=== PATIENT | male | born 1960 | race Caucasian/White ===

== ENCOUNTER 2020-05-23 14:51 | Inpatient (IN) | payer OTHER ==
[2020-05-23] MEDS ORDERED: Sodium Chloride 0.9% 10 ML Syringe FLUSH PRN (15:36)
[2020-05-23] MEDS ORDERED: Acetaminophen 325 MG Tab PO ONE (15:36)
--- NOTE | 2020-05-23 17:37 | EDM.PDOC ---
ED HPI GENERAL MEDICAL PROBLEM - General Chief Complaint: Respiratory Problem Stated Complaint: COVID + AND SOB Time Seen by Provider: 05/23/20 15:34 Source of Information: Reports: Patient, RN Notes Reviewed - History of Present Illness INITIAL COMMENTS - FREE TEXT/NARRATIVE: 60 yr old male exposed to a covid positive person about 2 wks ago, started feeling ill about 7 to 8 days ago. He has had cough, fever, chills, [place], myalgias and worsening dyspnea with exertion the past 2 days. Hx of Htn, Hx of CAD with 2 stents. He is not diabetic, he does not smoke. Treatments BONE GRINDER: Reports: Other (see below) Other Treatments BONE GRINDER: cold anfd flu prn Headache Pain Score (Numeric/FACES): 7 Generalized Pain Score (Numeric/FACES): 6 - Related Data Allergies Allergy/AdvReac Type Severity Reaction Status Date / Time No Known Allergies Allergy Verified 12/20/17 06:55 Home Meds: Home Meds Benazepril [Lotensin] 40 mg PO DAILY 05/23/20 [History] Metoprolol Tartrate [Lopressor] 25 mg PO BID 05/23/20 [History] Ubidecarenone [Co Q-10] 100 mg PO DAILY 05/23/20 [History] atorvaSTATin [Lipitor] 80 mg PO DAILY 05/23/20 [History] ED ROS GENERAL - Review of Systems Review Of Systems: See Below Constitutional: Reports: Fever, Chills HEENT: Denies: Throat Pain Respiratory: Reports: Shortness of Breath, Cough Cardiovascular: Denies: Chest Pain GI/Abdominal: Reports: Decreased Appetite. Denies: Abdominal Pain, Vomiting Musculoskeletal: Reports: Other (generalized myalgias). Denies: Shoulder Pain, Arm Pain Skin: Reports: No Symptoms Neurological: Reports: Dizziness, Headache, Weakness (generalized). Denies: Trouble Speaking ED EXAM, GENERAL - Physical Exam Exam: See Below General Appearance: Alert, No Apparent Distress (at time of exam on 4 L NC) Eye Exam: Bilateral Eye: PERRL Head: Atraumatic Neck: Supple Respiratory/Chest: Respiratory Distress (mild tachypnea). No: Rhonchi, Wheezing Cardiovascular: Regular Rate, Rhythm GI/Abdominal: Soft, Non-Tender Back Exam: No: CVA Tenderness (L), CVA Tenderness (R) Extremities: No: Pedal Edema, Leg Pain, Redness Neurological: Alert, Oriented, No Motor/Sensory Deficits Skin Exam: Warm, Dry, Normal Color Course - Vital Signs Last Recorded V/S: Last Vital Signs Temp 100.9 F H 05/23/20 15:26 Pulse 100 05/23/20 15:26 Resp BP 150/80 H 05/23/20 15:26 Pulse Ox 83 L 05/23/20 15:26 - Orders/Labs/Meds Orders: Active Orders 24 hr Category Date Time Status Oxygen Therapy [RC] ASDIRECTED Care 05/23/20 15:35 Active Peripheral IV Care [RC] . DIRECTED Care 05/23/20 15:36 Active Chest 1V Frontal [CR] Stat Exams 05/23/20 15:34 Taken CALCITRIOL(1,25 DI-OH VIT D) [REF] Routine Lab 05/23/20 18:22 Received PROCALCITONIN [REF] Routine Lab 05/23/20 18:22 Received Sodium Chloride 0.9% [Saline Flush] Med 05/23/20 15:36 Active 10 ml FLUSH ASDIRECTED PRN Peripheral IV Insertion Adult [OM.PC] Stat Oth 05/23/20 15:35 Ordered Medication Orders Acetaminophen (Tylenol) 650 mg PO Q4H PRN PRN Reason: Pain (Mild 1-3)/fever Albuterol/Ipratropium (Duoneb 3.0-0.5 Mg/3 Ml) 3 ml NEB Q4H PRN PRN Reason: Shortness Of Breath/wheezing Dexamethasone (Dexamethasone) 6 mg IV DAILY [facility] Docusate Sodium (Colace) 100 mg PO BID PRN PRN Reason: Constipation Enoxaparin Sodium (Lovenox) 40 mg SUBCUT DAILY [facility] Sodium Chloride (Normal Saline) 1,000 mls @ 75 mls/hr IV ASDIRECTED BREONNA Remdesivir 100 mg/ Sodium (Chloride) 100 mls @ 100 mls/hr IV Q24H [facility] Stop: 05/27/20 18:59 Ondansetron HCl (Zofran Odt) 4 mg PO Q6H PRN PRN Reason: nausea, able to take PO Oxycodone HCl (Oxycodone) 5 mg PO Q4H PRN PRN Reason: Pain (moderate 4-6) Sodium Chloride (Saline Flush) 10 ml FLUSH ASDIRECTED PRN PRN Reason: Keep Vein Open Last Admin: 05/23/20 16:04 Dose: 10 ml Documented by: LILO Temazepam (Restoril) 15 mg PO BEDTIME PRN PRN Reason: Sleep Labs: Laboratory Tests 05/23/20 05/23/20 05/23/20 Range/Units 16:00 16:00 16:00 WBC 5.68 (4.23-9.07) K/mm3 RBC 4.69 (4.63-6.08) M/mm3 Hgb 13.7 D (13.7-17.5) gm/dl Hct 41.0 (40.1-51.0) % MCV 87.4 (79.0-92.2) fl MCH 29.2 (25.7-32.2) pg MCHC 33.4 (32.2-35.5) g/dl RDW Std Deviation 46.5 H (35.1-43.9) fL Plt Count 286 (163-337) K/mm3 MPV 8.9 L (9.4-12.3) fl Neut % (Auto) 75.5 H (34.0-67.9) % Lymph % (Auto) 16.5 L (21.8-53.1) % [place] % (Auto) 7.4 (5.3-12.2) % Eos % (Auto) 0 L (0.8-7.0) Baso % (Auto) 0.4 (0.1-1.2) % Neut # (Auto) 4.29 (1.78-5.38) K/mm3 Lymph # (Auto) 0.94 L (1.32-3.57) K/mm3 [place] # (Auto) 0.42 (0.30-0.82) K/mm3 Eos # (Auto) 0.00 L (0.04-0.54) K/mm3 Baso # (Auto) 0.02 (0.01-0.08) K/mm3 Manual Slide Review Normal smear D-Dimer, Quantitative (0.19-0.50) mg/L Sodium 136 (136-145) mEq/L Potassium 4.0 (3.5-5.1) mEq/L Chloride 100 (98-107) mEq/L Carbon Dioxide 24 (21-32) mEq/L Anion Gap 16.0 H (5-15) BUN 14 (7-18) mg/dL Creatinine 1.1 (0.7-1.3) mg/dL Est Cr Clr Drug Dosing 75.58 mL/min Estimated GFR (MDRD) > 60 (>60) mL/min BUN/Creatinine Ratio 12.7 L (14-18) Glucose 143 H (74-106) mg/dL Calcium 8.1 L (8.5-10.1) mg/dL Ferritin (26-388) ng/ml Total Bilirubin 0.8 (0.2-1.0) mg/dL AST 28 (15-37) U/L ALT 39 (16-63) U/L Alkaline Phosphatase 83 (46-116) U/L Lactate Dehydrogenase 347 H (85-227) U/L Troponin I < 0.017 (0.00-0.056) ng/mL C-Reactive Protein 13.4 H* (<1.0) mg/dL Total Protein 7.1 (6.4-8.2) g/dl Albumin 2.8 L (3.4-5.0) g/dl Globulin 4.3 gm/dL Albumin/Globulin Ratio 0.7 L (1-2) 05/23/20 05/23/20 Range/Units 16:00 16:00 WBC (4.23-9.07) K/mm3 RBC (4.63-6.08) M/mm3 Hgb (13.7-17.5) gm/dl Hct (40.1-51.0) % MCV (79.0-92.2) fl MCH (25.7-32.2) pg MCHC (32.2-35.5) g/dl RDW Std Deviation (35.1-43.9) fL Plt Count (163-337) K/mm3 MPV (9.4-12.3) fl Neut % (Auto) (34.0-67.9) % Lymph % (Auto) (21.8-53.1) % [place] % (Auto) (5.3-12.2) % Eos % (Auto) (0.8-7.0) Baso % (Auto) (0.1-1.2) % Neut # (Auto) (1.78-5.38) K/mm3 Lymph # (Auto) (1.32-3.57) K/mm3 [place] # (Auto) (0.30-0.82) K/mm3 Eos # (Auto) (0.04-0.54) K/mm3 Baso # (Auto) (0.01-0.08) K/mm3 Manual Slide Review D-Dimer, Quantitative 0.77 H (0.19-0.50) mg/L Sodium (136-145) mEq/L Potassium (3.5-5.1) mEq/L Chloride (98-107) mEq/L Carbon Dioxide (21-32) mEq/L Anion Gap (5-15) BUN (7-18) mg/dL Creatinine (0.7-1.3) mg/dL Est Cr Clr Drug Dosing mL/min Estimated GFR (MDRD) (>60) mL/min BUN/Creatinine Ratio (14-18) Glucose (74-106) mg/dL Calcium (8.5-10.1) mg/dL Ferritin 1463 H (26-388) ng/ml Total Bilirubin (0.2-1.0) mg/dL AST (15-37) U/L ALT (16-63) U/L Alkaline Phosphatase (46-116) U/L Lactate Dehydrogenase (85-227) U/L Troponin I (0.00-0.056) ng/mL C-Reactive Protein (<1.0) mg/dL Total Protein (6.4-8.2) g/dl Albumin (3.4-5.0) g/dl Globulin gm/dL Albumin/Globulin Ratio (1-2) Meds: Medications Generic Name Dose Route Start Last Admin Trade Name Freq PRN Reason Stop Dose Admin Acetaminophen 650 mg 05/23/20 18:04 Tylenol PO Q4H PRN Pain (Mild 1-3)/fever Albuterol/Ipratropium 3 ml 05/23/20 18:04 Duoneb 3.0-0.5 Mg/3 Ml NEB Q4H PRN Shortness Of Breath/wheezing Dexamethasone 6 mg 05/23/20 18:15 Dexamethasone IV DAILY BREONNA Docusate Sodium 100 mg 05/23/20 18:04 Colace PO BID PRN Constipation Enoxaparin Sodium 40 mg 05/23/20 18:15 Lovenox SUBCUT DAILY [facility] Sodium Chloride 1,000 mls @ 75 mls/hr 05/23/20 18:15 Normal Saline IV ASDIRECTED BREONNA Remdesivir 100 mg/ Sodium 100 mls @ 100 mls/hr 05/24/20 18:00 Chloride IV 05/27/20 18:59 Q24H BREONNA Ondansetron HCl 4 mg 05/23/20 18:04 Zofran Odt PO Q6H PRN nausea, able to take PO Oxycodone HCl 5 mg 05/23/20 18:04 Oxycodone PO Q4H PRN Pain (moderate 4-6) Sodium Chloride 10 ml 05/23/20 15:36 05/23/20 16:04 Saline Flush FLUSH 10 ml ASDIRECTED PRN Administration Keep Vein Open Temazepam 15 mg 05/23/20 18:04 Restoril PO BEDTIME PRN Sleep Discontinued Medications Generic Name Dose Route Start Last Admin Trade Name Freq PRN Reason Stop Dose Admin Acetaminophen 975 mg 05/23/20 15:36 05/23/20 15:50 Tylenol PO 05/23/20 15:37 975 mg NOW ONE Administration Remdesivir 200 mg/ Sodium 250 mls @ 250 mls/hr 05/23/20 18:04 Chloride IV 05/23/20 18:05 ONETIME ONE Ibuprofen 800 mg 05/23/20 17:54 05/23/20 17:55 Motrin PO 05/23/20 17:55 800 mg ONETIME ONE Administration - Re-Assessments/Exams Free Text/Narrative Re-Assessment/Exam: 05/23/20 17:37. CXR shows mild infiltrate L lat lower lung. He is known covid positive. He just got results of his covid screen yesterday. sats 83 % on arrival to ED room air. sats have been running around 92 with O2 at [address] L NC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 Departure - Departure Time of Disposition: 17:41 Disposition: Admitted As Inpatient 68 Condition: Serious Clinical Impression: Pneumonia due to COVID-19 virus, Hypoxia - Discharge Information Sepsis Event Note (ED) - Evaluation Sepsis Screening Result: No Definite Risk - Focused Exam Vital Signs: Vital Signs Temp Pulse BP Pulse Ox Pulse Ox 05/23/20 15:26 100.9 F H 100 150/80 H 83 L 05/23/20 15:20 92 L - My Orders Last 24 Hours: My Active Orders 05/23/20 15:34 Chest 1V Frontal [CR] Stat 05/23/20 15:35 Oxygen Therapy [RC] ASDIRECTED Peripheral IV Insertion Adult [OM.PC] Stat 05/23/20 15:36 Peripheral IV Care [RC] . DIRECTED Sodium Chloride 0.9% [Saline Flush] 10 ml FLUSH ASDIRECTED PRN - Assessment/Plan Last 24 Hours: My Active Orders 05/23/20 15:34 Chest 1V Frontal [CR] Stat 05/23/20 15:35 Oxygen Therapy [RC] ASDIRECTED Peripheral IV Insertion Adult [OM.PC] Stat 05/23/20 15:36 Peripheral IV Care [RC] . DIRECTED Sodium Chloride 0.9% [Saline Flush] 10 ml FLUSH ASDIRECTED PRN
[2020-05-23] MEDS ORDERED: Ibuprofen 800 MG Tab PO ONE (17:54)
[2020-05-23] MEDS ORDERED: Temazepam 15 MG Cap PO PRN (18:04)
[2020-05-23] MEDS ORDERED: oxyCODONE 5 MG Tab PO PRN (18:04)
[2020-05-23] MEDS ORDERED: Ondansetron 4 MG Tab.DIS PO PRN (18:04)
[2020-05-23] MEDS ORDERED: Docusate Sodium 100 MG Cap PO PRN (18:04)
[2020-05-23] MEDS ORDERED: Acetaminophen 325 MG Tab PO PRN (18:04)
[2020-05-23] MEDS ORDERED: Dexamethasone 4 MG/ML 5 ML MDV IV SCH (18:15)
[2020-05-23] MEDS ORDERED: Enoxaparin 40 MG/0.4 ML Syringe SUBCUT SCH (18:15)
--- NOTE | 2020-05-23 18:20 | PCM.HP.2 ---
H&P History of Present Illness - General Date of Service: 05/23/20 Admit Problem/Dx: Admission Diagnosis/Problem Admission Diagnosis/Problem Hypoxia Source of Information: Patient History Limitations: Reports: No Limitations - History of Present Illness Initial Comments - Free Text/Narative: The patient is a 60-year-old gentleman who had presented to the emergency department after feeling ill for about 7 days. The patient had been exposed to a COVID-19 positive person. The patient's main concern is that he had been running a fever as high as 103. Patient also reports that he has had loss of taste and smell. Headache along with severe myalgias and worsening dyspnea. The patient does have a history of coronary artery disease and hypertension. Patient has been compliant with his medications. He does not smoke. The patient was positive for COVID-19 in the emergency department. The patient has had no specific aggravating or relieving factors however, he says the Tylenol has helped his fever. Patient has been in his usual state of health up until the present time. Onset of Symptoms: Reports: Gradual Duration of Symptoms: Reports: Day(s):, Getting Worse Improves with: Reports: Other (Oxygen) Worsens with: Reports: Breathing Context: Reports: Sick Contact Associated Symptoms: Reports: Cough, Diaphoresis, Fever/Chills, Headaches, Loss of Appetite, Other (Loss of taste, smell) Headache Pain Score (Numeric/FACES): 7 Generalized Pain Score (Numeric/FACES): 6 - Related Data Allergies/Adverse Reactions: Allergies Allergy/AdvReac Type Severity Reaction Status Date / Time No Known Allergies Allergy Verified 05/24/20 00:59 Home Medications: Home Meds Benazepril [Lotensin] 20 mg PO DAILY 05/23/20 [History] Metoprolol Tartrate [Lopressor] 25 mg PO BID 05/23/20 [History] Ubidecarenone [Co Q-10] 100 mg PO DAILY 05/23/20 [History] atorvaSTATin [Lipitor] 80 mg PO DAILY 05/23/20 [History] Past Medical History HEENT History: Reports: None Cardiovascular History: Reports: CAD, Heart Failure, Hypertension Respiratory History: Reports: None Gastrointestinal History: Reports: None Genitourinary History: Reports: None Musculoskeletal History: Reports: None Neurological History: Reports: None Endocrine/Metabolic History: Reports: None Hematologic History: Reports: None Immunologic History: Reports: None Dermatologic History: Reports: None - Infectious Disease History Infectious Disease History: Reports: Novel Coronavirus - Past Surgical History Cardiovascular Surgical History: Reports: Other (See Below) Other Cardiovascular Surgeries/Procedures: stent placement Musculoskeletal Surgical History: Reports: Shoulder Surgery Social & Family History - Tobacco Use Tobacco Use Status *Q: Former Tobacco User Used Tobacco, but Quit: Yes Month/Year Tobacco Last Used: years ago - Caffeine Use Caffeine Use: Reports: Coffee - Recreational Drug Use Recreational Drug Use: No - Living Situation & Occupation Living situation: Reports: , with Spouse H&P Review of Systems - Review of Systems: Review Of Systems: See Below General: Reports: Fever, Chills, Malaise, Weakness, Diaphoresis, Decreased Appetite HEENT: Reports: No Symptoms Pulmonary: Reports: Shortness of Breath, Cough Cardiovascular: Reports: Dyspnea on Exertion Gastrointestinal: Reports: Decreased Appetite Genitourinary: Reports: No Symptoms Musculoskeletal: Reports: Muscle Pain Skin: Reports: Diaphoresis Psychiatric: Reports: No Symptoms Neurological: Reports: Dizziness, Headache Hematologic/Lymphatic: Reports: No Symptoms Immunologic: Reports: No Symptoms Exam - Exam Exam: See Below - Vital Signs Vital Signs: Last Vital Signs Temp 38.3 C H 05/23/20 15:26 Pulse 100 05/23/20 15:26 Resp BP 150/80 H 05/23/20 15:26 Pulse Ox 83 L 05/23/20 15:26 Weight: 112.037 kg - Exam Quality Assessment: Supplemental Oxygen General: Alert, Oriented, Cooperative, Mild Distress HEENT: EACs Clear. No: Conjunctiva Clear (Inflamed), Mucosa Moist & [place] (Dry) Neck: Supple, Trachea Midline Lungs: Normal Respiratory Effort, Crackles (Widely scattered) Cardiovascular: Regular Rate, Regular Rhythm GI/Abdominal Exam: Normal Bowel Sounds, Soft, Non-Tender, No Distention (Male) Exam: Deferred Rectal (Males) Exam: Deferred Back Exam: Normal Inspection, Full Range of Motion Extremities: Normal Inspection, No Pedal Edema Skin: Warm, Intact, Moist Neurological: Cranial Nerves Intact Neuro Extensive - Mental Status: Alert, Oriented x3 Neuro Extensive - Motor, Sensory, Reflexes: CN II-XII Intact Psychiatric: Alert, Normal Affect, Normal Mood - Patient Data Lab Results Last 24 hrs: Laboratory Results - last 24 hr 05/23/20 05/23/20 05/23/20 Range/Units 16:00 16:00 16:00 WBC 5.68 (4.23-9.07) K/mm3 RBC 4.69 (4.63-6.08) M/mm3 Hgb 13.7 D (13.7-17.5) gm/dl Hct 41.0 (40.1-51.0) % MCV 87.4 (79.0-92.2) fl MCH 29.2 (25.7-32.2) pg MCHC 33.4 (32.2-35.5) g/dl RDW Std Deviation 46.5 H (35.1-43.9) fL Plt Count 286 (163-337) K/mm3 MPV 8.9 L (9.4-12.3) fl Neut % (Auto) 75.5 H (34.0-67.9) % Lymph % (Auto) 16.5 L (21.8-53.1) % [place] % (Auto) 7.4 (5.3-12.2) % Eos % (Auto) 0 L (0.8-7.0) Baso % (Auto) 0.4 (0.1-1.2) % Neut # (Auto) 4.29 (1.78-5.38) K/mm3 Lymph # (Auto) 0.94 L (1.32-3.57) K/mm3 [place] # (Auto) 0.42 (0.30-0.82) K/mm3 Eos # (Auto) 0.00 L (0.04-0.54) K/mm3 Baso # (Auto) 0.02 (0.01-0.08) K/mm3 Manual Slide Review Normal smear D-Dimer, Quantitative (0.19-0.50) mg/L Sodium 136 (136-145) mEq/L Potassium 4.0 (3.5-5.1) mEq/L Chloride 100 (98-107) mEq/L Carbon Dioxide 24 (21-32) mEq/L Anion Gap 16.0 H (5-15) BUN 14 (7-18) mg/dL Creatinine 1.1 (0.7-1.3) mg/dL Est Cr Clr Drug Dosing 75.58 mL/min Estimated GFR (MDRD) > 60 (>60) mL/min BUN/Creatinine Ratio 12.7 L (14-18) Glucose 143 H (74-106) mg/dL Calcium 8.1 L (8.5-10.1) mg/dL Ferritin (26-388) ng/ml Total Bilirubin 0.8 (0.2-1.0) mg/dL AST 28 (15-37) U/L ALT 39 (16-63) U/L Alkaline Phosphatase 83 (46-116) U/L Lactate Dehydrogenase 347 H (85-227) U/L Troponin I < 0.017 (0.00-0.056) ng/mL C-Reactive Protein 13.4 H* (<1.0) mg/dL Total Protein 7.1 (6.4-8.2) g/dl Albumin 2.8 L (3.4-5.0) g/dl Globulin 4.3 gm/dL Albumin/Globulin Ratio 0.7 L (1-2) 05/23/20 05/23/20 Range/Units 16:00 16:00 WBC (4.23-9.07) K/mm3 RBC (4.63-6.08) M/mm3 Hgb (13.7-17.5) gm/dl Hct (40.1-51.0) % MCV (79.0-92.2) fl MCH (25.7-32.2) pg MCHC (32.2-35.5) g/dl RDW Std Deviation (35.1-43.9) fL Plt Count (163-337) K/mm3 MPV (9.4-12.3) fl Neut % (Auto) (34.0-67.9) % Lymph % (Auto) (21.8-53.1) % [place] % (Auto) (5.3-12.2) % Eos % (Auto) (0.8-7.0) Baso % (Auto) (0.1-1.2) % Neut # (Auto) (1.78-5.38) K/mm3 Lymph # (Auto) (1.32-3.57) K/mm3 [place] # (Auto) (0.30-0.82) K/mm3 Eos # (Auto) (0.04-0.54) K/mm3 Baso # (Auto) (0.01-0.08) K/mm3 Manual Slide Review D-Dimer, Quantitative 0.77 H (0.19-0.50) mg/L Sodium (136-145) mEq/L Potassium (3.5-5.1) mEq/L Chloride (98-107) mEq/L Carbon Dioxide (21-32) mEq/L Anion Gap (5-15) BUN (7-18) mg/dL Creatinine (0.7-1.3) mg/dL Est Cr Clr Drug Dosing mL/min Estimated GFR (MDRD) (>60) mL/min BUN/Creatinine Ratio (14-18) Glucose (74-106) mg/dL Calcium (8.5-10.1) mg/dL Ferritin 1463 H (26-388) ng/ml Total Bilirubin (0.2-1.0) mg/dL AST (15-37) U/L ALT (16-63) U/L Alkaline Phosphatase (46-116) U/L Lactate Dehydrogenase (85-227) U/L Troponin I (0.00-0.056) ng/mL C-Reactive Protein (<1.0) mg/dL Total Protein (6.4-8.2) g/dl Albumin (3.4-5.0) g/dl Globulin gm/dL Albumin/Globulin Ratio (1-2) Result Diagrams: 05/24/20 04:29 05/23/20 16:00 Sepsis Event Note - Evaluation Sepsis Screening Result: No Definite Risk - Focused Exam Vital Signs: Vital Signs Temp Pulse BP Pulse Ox Pulse Ox 05/23/20 15:26 38.3 C H 100 150/80 H 83 L 05/23/20 15:20 92 L - Problem List (1) Acute respiratory failure due to COVID-19 SNOMED Code(s): 115258573 ICD Code: U07.1 - COVID-19; J96.00 - ACUTE RESPIRATORY FAILURE, UNSP W HYPOXIA OR HYPERCAPNIA Status: Acute Priority: High Current Visit: Yes (2) Pneumonia due to COVID-19 virus SNOMED Code(s): 329648726674164854 ICD Code: U07.1 - COVID-19; J12.89 - OTHER VIRAL PNEUMONIA Status: Acute Priority: High Current Visit: Yes (3) Hypoxia SNOMED Code(s): 134279245 ICD Code: R09.02 - HYPOXEMIA Status: Acute Priority: High Current Visit: Yes (4) Hypertension SNOMED Code(s): 70547179 ICD Code: I10 - ESSENTIAL (PRIMARY) HYPERTENSION Status: Chronic Priority: Medium Current Visit: Yes Qualifiers: Hypertension type: essential hypertension Qualified Code(s): I10 - Essential (primary) hypertension (5) Coronary artery disease SNOMED Code(s): 59942119 ICD Code: I25.10 - ATHSCL HEART DISEASE OF [place] CORONARY ARTERY W/O ANG PCTRS Status: Chronic Priority: Medium Current Visit: Yes Qualifiers: Coronary Disease-Associated Artery/Lesion type: [place] artery [place] vs. transplanted heart: [place] heart Associated angina: without angina Qualified Code(s): I25.10 - Atherosclerotic heart disease of [place] coronary artery without angina pectoris Problem List Initiated/Reviewed/Updated: Yes Orders Last 24hrs: Active Orders 24 hr Category Date Time Status Patient Status [ADT] Routine ADT 05/23/20 18:04 Ordered Cardiac Monitoring [RC] CONTINUOUS Care 05/23/20 18:06 Ordered Oxygen Therapy [RC] ASDIRECTED Care 05/23/20 15:35 Active Peripheral IV Care [RC] . DIRECTED Care 05/23/20 15:36 Active Pulse Oximetry [RC] CONTINUOUS Care 05/23/20 18:06 Ordered RT Aerosol Therapy [RC] ASDIRECTED Care 05/23/20 18:11 Ordered Up ad Crys [RC] ASDIRECTED Care 05/23/20 18:04 Ordered VTE/DVT Education [RC] PER UNIT ROUTINE Care 05/23/20 18:04 Ordered Vital Signs [RC] Q4H Care 05/23/20 18:04 Ordered Heart Healthy Diet [DIET] Diet 05/23/20 Breakfast Ordered Chest 1V Frontal [CR] Stat Exams 05/23/20 15:34 Taken C-REACTIVE PROTEIN [CHEM] AM Lab 05/24/20 05:11 Ordered CALCITRIOL(1,25 DI-OH VIT D) [REF] Routine Lab 05/23/20 18:03 Ordered CBC WITH AUTO DIFF [HEME] AM Lab 05/24/20 05:11 Ordered FIBRINOGEN [COAG] Stat Lab 05/23/20 18:04 Ordered MAGNESIUM [CHEM] AM Lab 05/24/20 05:11 Ordered PHOSPHORUS [CHEM] AM Lab 05/24/20 05:11 Ordered PRO B-TYPE NATRIUR PEPT,BNPPRO [CHEM] Stat Lab 05/23/20 18:02 Ordered PROCALCITONIN [REF] Routine Lab 05/23/20 18:02 Ordered Acetaminophen [TylenoL] Med 05/23/20 18:04 Ordered 650 mg PO Q4H PRN Albuterol/Ipratropium [DuoNeb 3.0-0.5 MG/3 ML] Med 05/23/20 18:04 Ordered 3 ml NEB Q4H PRN Docusate Sodium [Colace] Med 05/23/20 18:04 Ordered 100 mg PO BID PRN Enoxaparin [Lovenox] Med 05/23/20 18:15 Ordered 40 mg SUBCUT DAILY Ondansetron [Zofran ODT] Med 05/23/20 18:04 Ordered 4 mg PO Q6H PRN Remdesivir (Eua) [Remdesivir (EUA)] 100 mg Med 05/24/20 18:15 Ordered Sodium Chloride 0.9% [Normal Saline] 100 ml IV Q24H Remdesivir (Eua) [Remdesivir (EUA)] 200 mg Med 05/23/20 18:04 Ordered Sodium Chloride 0.9% [Normal Saline] 250 ml IV ONETIME Sodium Chloride 0.9% [Normal Saline] 1,000 ml Med 05/23/20 18:15 Ordered IV ASDIRECTED Sodium Chloride 0.9% [Saline Flush] Med 05/23/20 15:36 Active 10 ml FLUSH ASDIRECTED PRN Temazepam [Restoril] Med 05/23/20 18:04 Ordered 15 mg PO BEDTIME PRN dexAMETHasone [Dexamethasone] Med 05/23/20 18:15 Ordered 6 mg IV DAILY oxyCODONE Med 05/23/20 18:04 Ordered 5 mg PO Q4H PRN Peripheral IV Insertion Adult [OM.PC] Stat Oth 05/23/20 15:35 Ordered Resuscitation Status Routine Resus Stat 05/23/20 18:04 Ordered Medication Orders Acetaminophen (Tylenol) 650 mg PO Q4H PRN PRN Reason: Pain (Mild 1-3)/fever Albuterol/Ipratropium (Duoneb 3.0-0.5 Mg/3 Ml) 3 ml NEB Q4H PRN PRN Reason: Shortness Of Breath/wheezing Dexamethasone (Dexamethasone) 6 mg IV DAILY BREONNA Docusate Sodium (Colace) 100 mg PO BID PRN PRN Reason: Constipation Enoxaparin Sodium (Lovenox) 40 mg SUBCUT DAILY [facility] Sodium Chloride (Normal Saline) 1,000 mls @ 75 mls/hr IV ASDIRECTED [facility] Remdesivir 200 mg/ Sodium (Chloride) 250 mls @ 250 mls/hr IV ONETIME ONE Stop: 05/23/20 18:05 Remdesivir 100 mg/ Sodium (Chloride) 100 mls @ 100 mls/hr IV Q24H BREONNA Stop: 05/27/20 19:14 Ondansetron HCl (Zofran Odt) 4 mg PO Q6H PRN PRN Reason: nausea, able to take PO Oxycodone HCl (Oxycodone) 5 mg PO Q4H PRN PRN Reason: Pain (moderate 4-6) Sodium Chloride (Saline Flush) 10 ml FLUSH ASDIRECTED PRN PRN Reason: Keep Vein Open Last Admin: 05/23/20 16:04 Dose: 10 ml Documented by: LILO Temazepam (Restoril) 15 mg PO BEDTIME PRN PRN Reason: Sleep Assessment/Plan Comment:: I have admitted the patient as an inpatient as he will require at least 5 days of remdesivir. I ordered 200 mg initially along with 100 mg IV for the next 4 days. Patient will also be started on dexamethasone 6 mg IV for 10 days. I have also ordered convalescent plasma 2 units to be transfused. Patient will have the regular diet as tolerated. The patient will also be kept on oxygen to help keep his saturations around 90%. I have ordered extra laboratory studies to consist of fibrinogen, proBNP, procalcitonin and vitamin D levels. These will be monitored and replaced as necessary. The patient will have DVT, VTE prophylaxis with the use of Lovenox 40 mg subcutaneous on a daily basis. Patient's D-dimer will be reordered. The patient's phosphorus and magnesium was normal and this will be monitored with repeat laboratory studies. The patient also has been encouraged to ambulate. Started the patient's home medications. 1. I spoke with Gunnar to provide information about convalescent plasma for patient. 2. I offered them the Facts Sheet for Patients and Parents/Caregivers for COVID-19 convalescent plasma to read and review. 3. I stated that the therapy has been approved by the Emergency Use Authorization (EUA) process and not fully been FDA reviewed or approved. 4. I shared potential risk from the therapy including transmission of blood borne pathogens such as HIV and hepatitis C, allergic and transfusion related reactions, post-transfusion purpura. Additionally, theoretical risks including a phenomenon called anti-body dependent enhancement of infection such as seen in dengue fever or attenuation of an immune response that may make patients more susceptible to re-infection. 5. I discussed there are other potential treatment options that are currently not FDA approved to treat COVID-19. 6. Discussed with the patient that is not an exclusion for convalescent plasma treatment, but the therapy has not been fully evaluated in patients. 7. Offered the opportunity to ask questions and all questions were answered. 8. Gunnar voiced understanding and agreed to proceed with treatment for himself. 1. I spoke with Gunnar to provide information about Remdesvir for himself. 2. I offered them the Facts Sheet for Patients and Parents/Caregivers for COVID-19 Remdesvir to read and review. 3. I stated that the therapy has been approved by the Emergency Use Authorization (EUA) process and not fully been FDA reviewed or approved. 4. The patient meets EUA requirements. 5. I shared that the drug may cause liver abnormalities and infusion related side effects. Additionally, other side effects are possible but not known as the drug has had limited studies. 6. I discussed there are other potential treatment options that are currently not FDA approved to treat COVID-19. Plasma treatment, but the therapy has not been fully evaluated in patients. 7. Discussed with the patient that is not an exclusion for Remdesvir treatment. 8. Offered the opportunity to ask questions and all questions were answered. 9. Gunnar voiced understanding and agreed to proceed with treatment for hims elf. - Mortality Measure Prognosis:: Good
[2020-05-23] MEDS: Sodium Chloride 0.9% 100 ML ONE ×2 (23:05→23:20)
[2020-05-23] MEDS: Enoxaparin 40 MG/0.4 ML Syringe SUBCUT SCH (23:16)
[2020-05-23] MEDS: Dexamethasone 4 MG/ML 5 ML MDV IV SCH (23:18)
[2020-05-23] MEDS: Sodium Chloride 0.9% 1,000 ML IV SCH (23:49)
[2020-05-24] MEDS ORDERED: FLU VACC QS2020-21(6MOS UP)/PF 60 MCG/0.5 ML SYRINGE IM ONE (05:15)
--- NOTE | 2020-05-24 07:31 | PCM.PN ---
- General Info Date of Service: 05/24/20 Admission Dx/Problem (Free Text): Admission Diagnosis/Problem Admission Diagnosis/Problem Hypoxia Subjective Update: The patient is a 60-year-old gentleman who was admitted yesterday secondary to hypoxia with fever. He was COVID-19 positive. Patient today says that he feels sweaty and has been tolerating the remdesivir and the dexamethasone. He had 2 L of convalescent plasma. The patient today says that he feels better. The patient has been tolerating his diet. Functional Status: Reports: Pain Controlled, Tolerating Diet - Review of Systems General: Reports: Weakness. Denies: Fever HEENT: Reports: No Symptoms Pulmonary: Reports: Shortness of Breath Cardiovascular: Reports: No Symptoms Gastrointestinal: Reports: No Symptoms Genitourinary: Reports: No Symptoms Musculoskeletal: Reports: No Symptoms Skin: Reports: No Symptoms Neurological: Reports: No Symptoms Psychiatric: Reports: No Symptoms - Patient Data Vitals - Most Recent: Last Vital Signs Temp 36.6 C 05/24/20 00:11 Pulse 70 05/24/20 00:11 Resp 20 05/24/20 00:11 BP 103/71 05/24/20 00:11 Pulse Ox 96 05/24/20 00:11 Weight - Most Recent: 112.037 kg I&O - Last 24 Hours: Intake & Output 05/23/20 05/24/20 05/24/20 22:59 06:59 14:59 Intake Total 0 Balance 0 Lab Results Last 24 Hours: Laboratory Results - last 24 hr 05/23/20 05/23/20 05/23/20 Range/Units 16:00 16:00 16:00 WBC 5.68 (4.23-9.07) K/mm3 RBC 4.69 (4.63-6.08) M/mm3 Hgb 13.7 D (13.7-17.5) gm/dl Hct 41.0 (40.1-51.0) % MCV 87.4 (79.0-92.2) fl MCH 29.2 (25.7-32.2) pg MCHC 33.4 (32.2-35.5) g/dl RDW Std Deviation 46.5 H (35.1-43.9) fL Plt Count 286 (163-337) K/mm3 MPV 8.9 L (9.4-12.3) fl Neut % (Auto) 75.5 H (34.0-67.9) % Lymph % (Auto) 16.5 L (21.8-53.1) % [place] % (Auto) 7.4 (5.3-12.2) % Eos % (Auto) 0 L (0.8-7.0) Baso % (Auto) 0.4 (0.1-1.2) % Neut # (Auto) 4.29 (1.78-5.38) K/mm3 Lymph # (Auto) 0.94 L (1.32-3.57) K/mm3 [place] # (Auto) 0.42 (0.30-0.82) K/mm3 Eos # (Auto) 0.00 L (0.04-0.54) K/mm3 Baso # (Auto) 0.02 (0.01-0.08) K/mm3 Manual Slide Review Normal smear Fibrinogen (187-446) mg/dL D-Dimer, Quantitative (0.19-0.50) mg/L Sodium 136 (136-145) mEq/L Potassium 4.0 (3.5-5.1) mEq/L Chloride 100 (98-107) mEq/L Carbon Dioxide 24 (21-32) mEq/L Anion Gap 16.0 H (5-15) BUN 14 (7-18) mg/dL Creatinine 1.1 (0.7-1.3) mg/dL Est Cr Clr Drug Dosing 75.58 mL/min Estimated GFR (MDRD) > 60 (>60) mL/min BUN/Creatinine Ratio 12.7 L (14-18) Glucose 143 H (74-106) mg/dL Calcium 8.1 L (8.5-10.1) mg/dL Phosphorus (2.6-4.7) mg/dL Magnesium (1.8-2.4) mg/dl Ferritin (26-388) ng/ml Total Bilirubin 0.8 (0.2-1.0) mg/dL AST 28 (15-37) U/L ALT 39 (16-63) U/L Alkaline Phosphatase 83 (46-116) U/L Lactate Dehydrogenase 347 H (85-227) U/L Troponin I < 0.017 (0.00-0.056) ng/mL C-Reactive Protein 13.4 H* (<1.0) mg/dL NT-Pro-B Natriuret Pep (0-125) pg/mL Total Protein 7.1 (6.4-8.2) g/dl Albumin 2.8 L (3.4-5.0) g/dl Globulin 4.3 gm/dL Albumin/Globulin Ratio 0.7 L (1-2) Blood Type 05/23/20 05/23/20 05/23/20 Range/Units 16:00 16:00 16:00 WBC (4.23-9.07) K/mm3 RBC (4.63-6.08) M/mm3 Hgb (13.7-17.5) gm/dl Hct (40.1-51.0) % MCV (79.0-92.2) fl MCH (25.7-32.2) pg MCHC (32.2-35.5) g/dl RDW Std Deviation (35.1-43.9) fL Plt Count (163-337) K/mm3 MPV (9.4-12.3) fl Neut % (Auto) (34.0-67.9) % Lymph % (Auto) (21.8-53.1) % [place] % (Auto) (5.3-12.2) % Eos % (Auto) (0.8-7.0) Baso % (Auto) (0.1-1.2) % Neut # (Auto) (1.78-5.38) K/mm3 Lymph # (Auto) (1.32-3.57) K/mm3 [place] # (Auto) (0.30-0.82) K/mm3 Eos # (Auto) (0.04-0.54) K/mm3 Baso # (Auto) (0.01-0.08) K/mm3 Manual Slide Review Fibrinogen (187-446) mg/dL D-Dimer, Quantitative 0.77 H (0.19-0.50) mg/L Sodium (136-145) mEq/L Potassium (3.5-5.1) mEq/L Chloride (98-107) mEq/L Carbon Dioxide (21-32) mEq/L Anion Gap (5-15) BUN (7-18) mg/dL Creatinine (0.7-1.3) mg/dL Est Cr Clr Drug Dosing mL/min Estimated GFR (MDRD) (>60) mL/min BUN/Creatinine Ratio (14-18) Glucose (74-106) mg/dL Calcium (8.5-10.1) mg/dL Phosphorus (2.6-4.7) mg/dL Magnesium (1.8-2.4) mg/dl Ferritin 1463 H (26-388) ng/ml Total Bilirubin (0.2-1.0) mg/dL AST (15-37) U/L ALT (16-63) U/L Alkaline Phosphatase (46-116) U/L Lactate Dehydrogenase (85-227) U/L Troponin I (0.00-0.056) ng/mL C-Reactive Protein (<1.0) mg/dL NT-Pro-B Natriuret Pep (0-125) pg/mL Total Protein (6.4-8.2) g/dl Albumin (3.4-5.0) g/dl Globulin gm/dL Albumin/Globulin Ratio (1-2) Blood Type B POSITIVE 05/23/20 05/23/20 05/24/20 Range/Units 18:22 18:22 04:29 WBC 6.45 (4.23-9.07) K/mm3 RBC 4.45 L (4.63-6.08) M/mm3 Hgb 12.9 L (13.7-17.5) gm/dl Hct 39.6 L (40.1-51.0) % MCV 89.0 (79.0-92.2) fl MCH 29.0 (25.7-32.2) pg MCHC 32.6 (32.2-35.5) g/dl RDW Std Deviation 47.0 H (35.1-43.9) fL Plt Count 276 (163-337) K/mm3 MPV 9.3 L (9.4-12.3) fl Neut % (Auto) 85.8 H (34.0-67.9) % Lymph % (Auto) 8.7 L (21.8-53.1) % [place] % (Auto) 5.0 L (5.3-12.2) % Eos % (Auto) 0 L (0.8-7.0) Baso % (Auto) 0.3 (0.1-1.2) % Neut # (Auto) 5.54 H (1.78-5.38) K/mm3 Lymph # (Auto) 0.56 L (1.32-3.57) K/mm3 [place] # (Auto) 0.32 (0.30-0.82) K/mm3 Eos # (Auto) 0.00 L (0.04-0.54) K/mm3 Baso # (Auto) 0.02 (0.01-0.08) K/mm3 Manual Slide Review Fibrinogen 731 H (187-446) mg/dL D-Dimer, Quantitative (0.19-0.50) mg/L Sodium (136-145) mEq/L Potassium (3.5-5.1) mEq/L Chloride (98-107) mEq/L Carbon Dioxide (21-32) mEq/L Anion Gap (5-15) BUN (7-18) mg/dL Creatinine (0.7-1.3) mg/dL Est Cr Clr Drug Dosing mL/min Estimated GFR (MDRD) (>60) mL/min BUN/Creatinine Ratio (14-18) Glucose (74-106) mg/dL Calcium (8.5-10.1) mg/dL Phosphorus (2.6-4.7) mg/dL Magnesium (1.8-2.4) mg/dl Ferritin (26-388) ng/ml Total Bilirubin (0.2-1.0) mg/dL AST (15-37) U/L ALT (16-63) U/L Alkaline Phosphatase (46-116) U/L Lactate Dehydrogenase (85-227) U/L Troponin I (0.00-0.056) ng/mL C-Reactive Protein (<1.0) mg/dL NT-Pro-B Natriuret Pep 44 (0-125) pg/mL Total Protein (6.4-8.2) g/dl Albumin (3.4-5.0) g/dl Globulin gm/dL Albumin/Globulin Ratio (1-2) Blood Type 05/24/20 Range/Units 04:29 WBC (4.23-9.07) K/mm3 RBC (4.63-6.08) M/mm3 Hgb (13.7-17.5) gm/dl Hct (40.1-51.0) % MCV (79.0-92.2) fl MCH (25.7-32.2) pg MCHC (32.2-35.5) g/dl RDW Std Deviation (35.1-43.9) fL Plt Count (163-337) K/mm3 MPV (9.4-12.3) fl Neut % (Auto) (34.0-67.9) % Lymph % (Auto) (21.8-53.1) % [place] % (Auto) (5.3-12.2) % Eos % (Auto) (0.8-7.0) Baso % (Auto) (0.1-1.2) % Neut # (Auto) (1.78-5.38) K/mm3 Lymph # (Auto) (1.32-3.57) K/mm3 [place] # (Auto) (0.30-0.82) K/mm3 Eos # (Auto) (0.04-0.54) K/mm3 Baso # (Auto) (0.01-0.08) K/mm3 Manual Slide Review Fibrinogen (187-446) mg/dL D-Dimer, Quantitative (0.19-0.50) mg/L Sodium (136-145) mEq/L Potassium (3.5-5.1) mEq/L Chloride (98-107) mEq/L Carbon Dioxide (21-32) mEq/L Anion Gap (5-15) BUN (7-18) mg/dL Creatinine (0.7-1.3) mg/dL Est Cr Clr Drug Dosing mL/min Estimated GFR (MDRD) (>60) mL/min BUN/Creatinine Ratio (14-18) Glucose (74-106) mg/dL Calcium (8.5-10.1) mg/dL Phosphorus 3.0 (2.6-4.7) mg/dL Magnesium 2.3 (1.8-2.4) mg/dl Ferritin (26-388) ng/ml Total Bilirubin (0.2-1.0) mg/dL AST (15-37) U/L ALT (16-63) U/L Alkaline Phosphatase (46-116) U/L Lactate Dehydrogenase (85-227) U/L Troponin I (0.00-0.056) ng/mL C-Reactive Protein 14.1 H* (<1.0) mg/dL NT-Pro-B Natriuret Pep (0-125) pg/mL Total Protein (6.4-8.2) g/dl Albumin (3.4-5.0) g/dl Globulin gm/dL Albumin/Globulin Ratio (1-2) Blood Type Med Orders - Current: Current Medications Acetaminophen (Tylenol) 650 mg PO Q4H PRN PRN Reason: Pain (Mild 1-3)/fever Albuterol/Ipratropium (Duoneb 3.0-0.5 Mg/3 Ml) 3 ml NEB Q4H PRN PRN Reason: Shortness Of Breath/wheezing Dexamethasone (Dexamethasone) 6 mg IV DAILY [facility] Last Admin: 05/23/20 23:18 Dose: 6 mg Documented by: Docusate Sodium (Colace) 100 mg PO BID PRN PRN Reason: Constipation Enoxaparin Sodium (Lovenox) 40 mg SUBCUT BEDTIME [facility] Last Admin: 05/23/20 23:16 Dose: 40 mg Documented by: Sodium Chloride (Normal Saline) 1,000 mls @ 75 mls/hr IV ASDIRECTED [facility] Last Admin: 05/23/20 23:49 Dose: 75 mls/hr Documented by: Remdesivir 100 mg/ Sodium (Chloride) 100 mls @ 100 mls/hr IV Q24H [facility] Stop: 05/27/20 18:59 Ondansetron HCl (Zofran Odt) 4 mg PO Q6H PRN PRN Reason: nausea, able to take PO Oxycodone HCl (Oxycodone) 5 mg PO Q4H PRN PRN Reason: Pain (moderate 4-6) Sodium Chloride (Saline Flush) 10 ml FLUSH ASDIRECTED PRN PRN Reason: Keep Vein Open Last Admin: 05/23/20 16:04 Dose: 10 ml Documented by: Temazepam (Restoril) 15 mg PO BEDTIME PRN PRN Reason: Sleep Discontinued Medications Acetaminophen (Tylenol) 975 mg PO NOW ONE Stop: 05/23/20 15:37 Last Admin: 05/23/20 15:50 Dose: 975 mg Documented by: Sodium Chloride (Normal Saline) Confirm Administered Dose 100 mls @ as directed .ROUTE .STK-MED ONE Stop: 05/23/20 22:27 Last Admin: 05/23/20 23:20 Dose: Not Given Documented by: Remdesivir 200 mg/ Sodium (Chloride) 250 mls @ 250 mls/hr IV ONETIME ONE Stop: 05/23/20 23:44 Last Admin: 05/23/20 23:50 Dose: 250 mls/hr Documented by: Ibuprofen (Motrin) 800 mg PO ONETIME ONE Stop: 05/23/20 17:55 Last Admin: 05/23/20 17:55 Dose: 800 mg Documented by: Influenza Virus Vaccine (Pharmacy To Dose - Influenza Vaccine) 1 each IM ONETIME ONE Stop: 05/24/20 05:08 Influenza Virus Vaccine (Fluzone Quad Syringe) 60 mcg IM .ONCE ONE Stop: 05/24/20 05:16 - Exam Quality Assessment: Supplemental Oxygen, DVT Prophylaxis General: Alert, Oriented, Cooperative HEENT: Pupils Equal, Pupils Reactive, EOMI Neck: Supple, Trachea Midline Lungs: Normal Respiratory Effort, Crackles, Rales Cardiovascular: Regular Rate, Regular Rhythm GI/Abdominal Exam: Normal Bowel Sounds, Soft, No Distention (Male) Exam: Deferred Back Exam: Normal Inspection, Full Range of Motion Extremities: Normal Inspection, No Pedal Edema Skin: Warm, Dry, Intact Neurological: No New Focal Deficit Psy/Mental Status: Alert, Normal Affect Sepsis Event Note - Evaluation Sepsis Screening Result: Sepsis Risk - Focused Exam Vital Signs: Vital Signs Temp Pulse Pulse Resp BP BP Pulse Ox 05/24/20 00:11 36.6 C 70 20 103/71 96 05/23/20 23:59 36.6 C 71 20 103/71 96 05/23/20 23:55 36.6 C 68 20 124/68 94 L 05/23/20 23:54 36.6 C 73 20 124/68 05/23/20 23:43 36.7 C 70 20 119/69 95 05/23/20 23:41 36.7 C 69 73 20 119/69 94 L 05/23/20 23:35 36.7 C 70 20 115/85 95 05/23/20 23:20 36.7 C 70 20 115/85 95 05/23/20 23:14 36.7 C 70 20 128/67 95 05/23/20 23:12 36.7 C 70 20 128/67 95 05/23/20 23:00 96 05/23/20 21:55 36.4 C 71 21 H 124/72 96 05/23/20 21:29 69 121/82 93 L - Problem List & Annotations (1) Hypertension SNOMED Code(s): 69300729 Code(s): I10 - ESSENTIAL (PRIMARY) HYPERTENSION Status: Chronic Priority: Medium Current Visit: Yes Qualifiers: Hypertension type: essential hypertension Qualified Code(s): I10 - Essential (primary) hypertension (2) Coronary artery disease SNOMED Code(s): 91009498 Code(s): I25.10 - ATHSCL HEART DISEASE OF [place] CORONARY ARTERY W/O ANG PCTRS Status: Chronic Priority: Medium Current Visit: Yes Qualifiers: Coronary Disease-Associated Artery/Lesion type: [place] artery [place] vs. transplanted heart: [place] heart Associated angina: without angina Qualified Code(s): I25.10 - Atherosclerotic heart disease of [place] coronary artery without angina pectoris (3) Acute respiratory failure due to COVID-19 SNOMED Code(s): 597735397 Code(s): U07.1 - COVID-19; J96.00 - ACUTE RESPIRATORY FAILURE, UNSP W HYPOXIA OR HYPERCAPNIA Status: Acute Priority: High Current Visit: Yes (4) Hypoxia SNOMED Code(s): 477537634 Code(s): R09.02 - HYPOXEMIA Status: Acute Priority: High Current Visit: Yes (5) Pneumonia due to COVID-19 virus SNOMED Code(s): 414410910964531829 Code(s): U07.1 - COVID-19; J12.89 - OTHER VIRAL PNEUMONIA Status: Acute P riority: High Current Visit: Yes - Problem List Review Problem List Initiated/Reviewed/Updated: Yes - My Orders Last 24 Hours: My Active Orders 05/23/20 Breakfast Heart Healthy Diet [DIET] 05/23/20 18:04 Patient Status [ADT] Routine Up ad Crys [RC] ASDIRECTED VTE/DVT Education [RC] PER UNIT ROUTINE Vital Signs [RC] Q4HR Acetaminophen [TylenoL] 650 mg PO Q4H PRN Albuterol/Ipratropium [DuoNeb 3.0-0.5 MG/3 ML] 3 ml NEB Q4H PRN Docusate Sodium [Colace] 100 mg PO BID PRN Ondansetron [Zofran ODT] 4 mg PO Q6H PRN Temazepam [Restoril] 15 mg PO BEDTIME PRN oxyCODONE 5 mg PO Q4H PRN Resuscitation Status Routine 05/23/20 18:06 Pulse Oximetry [RC] CONTINUOUS 05/23/20 18:11 RT Aerosol Therapy [RC] ASDIRECTED 05/23/20 18:15 Sodium Chloride 0.9% [Normal Saline] 1,000 ml IV ASDIRECTED 05/23/20 18:22 CALCITRIOL(1,25 DI-OH VIT D) [REF] Routine PROCALCITONIN [REF] Routine 05/23/20 22:45 Enoxaparin [Lovenox] 40 mg SUBCUT BEDTIME dexAMETHasone [Dexamethasone] 6 mg IV DAILY 05/24/20 04:29 CBC WITH AUTO DIFF [HEME] AM 05/24/20 05:08 Influenza Vaccine Charge [RC] .DISCHARGE 05/24/20 18:00 Remdesivir (Eua) [Remdesivir (EUA)] 100 mg Sodium Chloride 0.9% [Normal Saline] 100 ml IV Q24H - Plan Plan:: The patient today is doing much better. We will continue oxygen to keep his oxygen saturations around 90%. The patient is currently on remdesivir and dexamethasone in both these will be continued until the patient has been discharged. Patient is also on VT E prophylaxis consisting of Lovenox. The patient has a minimally elevated D-dimer and have ordered repeat laboratory studies for this. This will help to determine if the patient is able to be discharged with Xarelto or not. The patient will be continued on his diet as tolerated. He has been encouraged to ambulate. Patient should be appropriate for discharge once his final dose of remdesivir has been given.
[2020-05-24] MEDS: Dexamethasone 4 MG/ML 5 ML MDV IV SCH (09:11)
[2020-05-24] MEDS: Sodium Chloride 0.9% 1,000 ML IV SCH (13:09)
[2020-05-24] MEDS: REMDESIVIR (EUA) 100 MG in Sodium Chloride 0.9% 100 ML IV SCH (18:28)
[2020-05-24] MEDS: Metoprolol Tartrate 25 MG Tab PO SCH (21:17)
[2020-05-24] MEDS: Enoxaparin 40 MG/0.4 ML Syringe SUBCUT SCH (21:17)
[2020-05-24] MEDS: Albuterol/Ipratropium 3.0-0.5 MG/3 ML Neb Soln NEB PRN (21:25)
[2020-05-24] MEDS ORDERED: Sodium Chloride 0.9% 10 ML Syringe FLUSH PRN (22:07)
--- NOTE | 2020-05-25 08:37 | PCM.PN ---
- General Info Date of Service: 05/25/20 Admission Dx/Problem (Free Text): Admission Diagnosis/Problem Admission Diagnosis/Problem Hypoxia Subjective Update: The patient is a 60-year-old gentleman who was admitted on May 23, 2020. He was COVID-19 positive. The patient still has required oxygen. He feels short of breath. He is denied any pain. He has been tolerating his diet. Functional Status: Reports: Pain Controlled, Tolerating Diet - Review of Systems General: Reports: Weakness HEENT: Reports: No Symptoms Pulmonary: Reports: Shortness of Breath, Cough Cardiovascular: Reports: No Symptoms Gastrointestinal: Reports: No Symptoms Genitourinary: Reports: No Symptoms Musculoskeletal: Reports: No Symptoms Skin: Reports: No Symptoms Neurological: Reports: No Symptoms Psychiatric: Reports: No Symptoms - Patient Data Vitals - Most Recent: Last Vital Signs Temp 36.7 C 05/25/20 00:42 Pulse 81 05/25/20 00:42 Resp 20 05/25/20 00:42 BP 123/63 05/25/20 00:42 Pulse Ox 95 05/25/20 00:42 Weight - Most Recent: 112.083 kg I&O - Last 24 Hours: Intake & Output 05/24/20 05/25/20 05/25/20 22:59 06:59 14:59 Intake Total 2193 850 Output Total 800 750 Balance 1393 100 Lab Results Last 24 Hours: Laboratory Results - last 24 hr 05/23/20 05/25/20 05/25/20 Range/Units 18:22 05:26 05:29 WBC 8.3 (4.23-9.07) K/mm3 RBC 4.48 L (4.63-6.08) M/mm3 Hgb 12.7 L (13.7-17.5) gm/dl Hct 39.4 L (40.1-51.0) % MCV 87.9 (79.0-92.2) fl MCH 28.3 (25.7-32.2) pg MCHC 32.2 (32.2-35.5) g/dl RDW Std Deviation 45.0 H (35.1-43.9) fL Plt Count 398 H D (163-337) K/mm3 MPV 9.3 L (9.4-12.3) fl Neut % (Auto) 80.3 H (34.0-67.9) % Lymph % (Auto) 12.3 L (21.8-53.1) % [place] % (Auto) 7.1 (5.3-12.2) % Eos % (Auto) 0 L (0.8-7.0) Baso % (Auto) 0.2 (0.1-1.2) % Neut # (Auto) 6.66 H (1.78-5.38) K/mm3 Lymph # (Auto) 1.02 L (1.32-3.57) K/mm3 [place] # (Auto) 0.59 (0.30-0.82) K/mm3 Eos # (Auto) 0.00 L (0.04-0.54) K/mm3 Baso # (Auto) 0.02 (0.01-0.08) K/mm3 Manual Slide Review Normal smear D-Dimer, Quantitative (0.19-0.50) mg/L Sodium 139 (136-145) mEq/L Potassium 4.2 (3.5-5.1) mEq/L Chloride 104 (98-107) mEq/L Carbon Dioxide 23 (21-32) mEq/L Anion Gap 16.2 H (5-15) BUN 20 H (7-18) mg/dL Creatinine 1.0 (0.7-1.3) mg/dL Est Cr Clr Drug Dosing 83.14 mL/min Estimated GFR (MDRD) > 60 (>60) mL/min BUN/Creatinine Ratio 20.0 H (14-18) Glucose 143 H (74-106) mg/dL Calcium 8.6 (8.5-10.1) mg/dL Phosphorus 2.7 (2.6-4.7) mg/dL Magnesium 2.0 (1.8-2.4) mg/dl Total Bilirubin 0.6 (0.2-1.0) mg/dL AST 25 (15-37) U/L ALT 36 (16-63) U/L Alkaline Phosphatase 76 (46-116) U/L C-Reactive Protein 7.1 H* (<1.0) mg/dL Total Protein 7.1 (6.4-8.2) g/dl Albumin 2.7 L (3.4-5.0) g/dl Globulin 4.4 gm/dL Albumin/Globulin Ratio 0.6 L (1-2) Procalcitonin <0.05 (<0.10) ng/mL 05/25/20 Range/Units 05:29 WBC (4.23-9.07) K/mm3 RBC (4.63-6.08) M/mm3 Hgb (13.7-17.5) gm/dl Hct (40.1-51.0) % MCV (79.0-92.2) fl MCH (25.7-32.2) pg MCHC (32.2-35.5) g/dl RDW Std Deviation (35.1-43.9) fL Plt Count (163-337) K/mm3 MPV (9.4-12.3) fl Neut % (Auto) (34.0-67.9) % Lymph % (Auto) (21.8-53.1) % [place] % (Auto) (5.3-12.2) % Eos % (Auto) (0.8-7.0) Baso % (Auto) (0.1-1.2) % Neut # (Auto) (1.78-5.38) K/mm3 Lymph # (Auto) (1.32-3.57) K/mm3 [place] # (Auto) (0.30-0.82) K/mm3 Eos # (Auto) (0.04-0.54) K/mm3 Baso # (Auto) (0.01-0.08) K/mm3 Manual Slide Review D-Dimer, Quantitative 1.10 H (0.19-0.50) mg/L Sodium (136-145) mEq/L Potassium (3.5-5.1) mEq/L Chloride (98-107) mEq/L Carbon Dioxide (21-32) mEq/L Anion Gap (5-15) BUN (7-18) mg/dL Creatinine (0.7-1.3) mg/dL Est Cr Clr Drug Dosing mL/min Estimated GFR (MDRD) (>60) mL/min BUN/Creatinine Ratio (14-18) Glucose (74-106) mg/dL Calcium (8.5-10.1) mg/dL Phosphorus (2.6-4.7) mg/dL Magnesium (1.8-2.4) mg/dl Total Bilirubin (0.2-1.0) mg/dL AST (15-37) U/L ALT (16-63) U/L Alkaline Phosphatase (46-116) U/L C-Reactive Protein (<1.0) mg/dL Total Protein (6.4-8.2) g/dl Albumin (3.4-5.0) g/dl Globulin gm/dL Albumin/Globulin Ratio (1-2) Procalcitonin (<0.10) ng/mL Med Orders - Current: Current Medications Acetaminophen (Tylenol) 650 mg PO Q4H PRN PRN Reason: Pain (Mild 1-3)/fever Albuterol/Ipratropium (Duoneb 3.0-0.5 Mg/3 Ml) 3 ml NEB Q4H PRN PRN Reason: Shortness Of Breath/wheezing Last Admin: 05/24/20 21:25 Dose: 3 ml Documented by: Benazepril HCl (Lotensin) 20 mg PO DAILY [facility] Dexamethasone (Dexamethasone) 6 mg IV DAILY [facility] Docusate Sodium (Colace) 100 mg PO BID PRN PRN Reason: Constipation Enoxaparin Sodium (Lovenox) 40 mg SUBCUT BEDTIME [facility] Last Admin: 05/24/20 21:17 Dose: 40 mg Documented by: Remdesivir 100 mg/ Sodium (Chloride) 100 mls @ 100 mls/hr IV Q24H [facility] Stop: 05/27/20 18:59 Last Admin: 05/24/20 18:28 Dose: 100 mls/hr Documented by: Metoprolol Tartrate (Lopressor) 25 mg PO BID [facility] Last Admin: 05/24/20 21:17 Dose: 25 mg Documented by: Ondansetron HCl (Zofran Odt) 4 mg PO Q6H PRN PRN Reason: nausea, able to take PO Oxycodone HCl (Oxycodone) 5 mg PO Q4H PRN PRN Reason: Pain (moderate 4-6) Rosuvastatin Calcium (Crestor) 20 mg PO DAILY [facility] Sodium Chloride (Saline Flush) 10 ml FLUSH ASDIRECTED PRN PRN Reason: Keep Vein Open Last Admin: 05/23/20 16:04 Dose: 10 ml Documented by: Sodium Chloride (Saline Flush) 10 ml FLUSH ASDIRECTED PRN PRN Reason: Keep Vein Open Temazepam (Restoril) 15 mg PO BEDTIME PRN PRN Reason: Sleep Discontinued Medications Acetaminophen (Tylenol) 975 mg PO NOW ONE Stop: 05/23/20 15:37 Last Admin: 05/23/20 15:50 Dose: 975 mg Documented by: Dexamethasone (Dexamethasone) 6 mg IV DAILY [facility] Last Admin: 05/24/20 09:11 Dose: 6 mg Documented by: Sodium Chloride (Normal Saline) 1,000 mls @ 75 mls/hr IV ASDIRECTED [facility] Last Admin: 05/24/20 13:09 Dose: 75 mls/hr Documented by: Sodium Chloride (Normal Saline) Confirm Administered Dose 100 mls @ as directed .ROUTE .STK-MED ONE Stop: 05/23/20 22:27 Last Admin: 05/23/20 23:20 Dose: Not Given Documented by: Remdesivir 200 mg/ Sodium (Chloride) 250 mls @ 250 mls/hr IV ONETIME ONE Stop: 05/23/20 23:44 Last Admin: 05/23/20 23:50 Dose: 250 mls/hr Documented by: Ibuprofen (Motrin) 800 mg PO ONETIME ONE Stop: 05/23/20 17:55 Last Admin: 05/23/20 17:55 Dose: 800 mg Documented by: Influenza Virus Vaccine (Pharmacy To Dose - Influenza Vaccine) 1 each IM ONETIME ONE Stop: 05/24/20 05:08 Influenza Virus Vaccine (Fluzone Quad [id number] Syringe) 60 mcg IM .ONCE ONE Stop: 05/24/20 05:16 Non-Formulary Medication (Ubidecarenone) 100 mg PO DAILY BREONNA - Exam Quality Assessment: Supplemental Oxygen General: Alert, Oriented, Cooperative HEENT: Pupils Equal, Pupils Reactive Neck: Supple, Trachea Midline Lungs: Normal Respiratory Effort, Crackles, Rales Cardiovascular: Regular Rate, Regular Rhythm GI/Abdominal Exam: Normal Bowel Sounds, Soft, No Distention (Male) Exam: Deferred Back Exam: Normal Inspection, Full Range of Motion Extremities: Normal Inspection, No Pedal Edema Skin: Warm, Dry, Intact Neurological: No New Focal Deficit Psy/Mental Status: Alert Sepsis Event Note - Evaluation Sepsis Screening Result: No Definite Risk - Focused Exam Vital Signs: Vital Signs Temp Pulse Pulse Resp BP Pulse Ox Pulse Ox 05/25/20 00:42 36.7 C 81 20 123/63 95 05/24/20 23:00 91 L 05/24/20 22:30 91 L 05/24/20 21:27 60 86 L 05/24/20 21:17 80 135/82 05/24/20 20:41 36.3 C 80 28 H 135/82 85 L - Problem List & Annotations (1) Acute respiratory failure due to COVID-19 SNOMED Code(s): 981780551 Code(s): U07.1 - COVID-19; J96.00 - ACUTE RESPIRATORY FAILURE, UNSP W HYPOXIA OR HYPERCAPNIA Status: Acute Priority: High Current Visit: Yes (2) Hypertension SNOMED Code(s): 57147084 Code(s): I10 - ESSENTIAL (PRIMARY) HYPERTENSION Status: Chronic Priority: Medium Current Visit: Yes Qualifiers: Hypertension type: essential hypertension Qualified Code(s): I10 - Essential (primary) hypertension (3) Coronary artery disease SNOMED Code(s): 55622177 Code(s): I25.10 - ATHSCL HEART DISEASE OF [place] CORONARY ARTERY W/O ANG PCTRS Status: Chronic Priority: Medium Current Visit: Yes Qualifiers: Coronary Disease-Associated Artery/Lesion type: [place] artery [place] vs. transplanted heart: [place] heart Associated angina: without angina Qualified Code(s): I25.10 - Atherosclerotic heart disease of [place] coronary artery without angina pectoris (4) Hypoxia SNOMED Code(s): 018749055 Code(s): R09.02 - HYPOXEMIA Status: Acute Priority: High Current Visit: Yes (5) Pneumonia due to COVID-19 virus SNOMED Code(s): 964564138136961996 Code(s): U07.1 - COVID-19; J12.89 - OTHER VIRAL PNEUMONIA Status: Acute Priority: High Current Visit: Yes - Problem List Review Problem List Initiated/Reviewed/Updated: Yes - My Orders Last 24 Hours: My Active Orders 05/24/20 18:00 Remdesivir (Eua) [Remdesivir (EUA)] 100 mg Sodium Chloride 0.9% [Normal Saline] 100 ml IV Q24H 05/24/20 21:00 Metoprolol Tartrate [Lopressor] 25 mg PO BID 05/24/20 22:07 Sodium Chloride 0.9% [Saline Flush] 10 ml FLUSH ASDIRECTED PRN Convert IV to Saline Lock [OM.PC] Urgent 05/25/20 09:00 Benazepril [Lotensin] 20 mg PO DAILY Rosuvastatin [Crestor] 20 mg PO DAILY dexAMETHasone [Dexamethasone] 6 mg IV DAILY - Plan Plan:: The patient today is doing much better. We will continue oxygen to keep his oxygen saturations around 90%. The patient is currently on remdesivir and dexamethasone in both these will be continued until the patient has been discharged. Patient is also on VT E prophylaxis consisting of Lovenox. The patient has a minimally elevated D-dimer and have ordered repeat laboratory studies for this. This will help to determine if the patient is able to be discharged with Xarelto or not. The patient will be continued on his diet as tolerated. He has been encouraged to ambulate. Patient should be appropriate for discharge once his final dose of remdesivir has been given. 05/25/2020 Overall the patient is doing much better. We will keep his oxygen to keep his saturations above 90%. He is currently at 2.5 L/min. Patient will be considered appropriate for discharge after completion of the remdesivir and he will likely need to have Xarelto if his D-dimer continues to be elevated. The patient will be continued on his regular diet as tolerated. He also has been encouraged to ambulate. The patient should be appropriate for discharge tomorrow. Repeat laboratory studies have been ordered.
[2020-05-25] MEDS: Albuterol/Ipratropium 3.0-0.5 MG/3 ML Neb Soln NEB PRN ×3 (08:49→17:45)
[2020-05-25] MEDS ORDERED: Non-Formulary Medication 1 Each (Ubidecarenone 100 MG) PO SCH (09:00)
[2020-05-25] MEDS ORDERED: Dexamethasone 4 MG/ML SDV IV SCH (09:00)
[2020-05-25] MEDS: Rosuvastatin 10 MG Tab PO SCH (09:06)
[2020-05-25] MEDS: Metoprolol Tartrate 25 MG Tab PO SCH ×2 (09:07→21:35)
[2020-05-25] MEDS: REMDESIVIR (EUA) 100 MG in Sodium Chloride 0.9% 100 ML IV SCH (18:02)
[2020-05-25] MEDS: Enoxaparin 40 MG/0.4 ML Syringe SUBCUT SCH (21:39)
[2020-05-26] MEDS: Dexamethasone 4 MG Tab PO SCH (09:58)
[2020-05-26] MEDS: Rosuvastatin 10 MG Tab PO SCH (09:59)
[2020-05-26] MEDS: Metoprolol Tartrate 25 MG Tab PO SCH ×2 (10:00→20:49)
--- NOTE | 2020-05-26 13:10 | PCM.PN ---
- General Info Date of Service: 05/26/20 Admission Dx/Problem (Free Text): Admission Diagnosis/Problem Admission Diagnosis/Problem Hypoxia Subjective Update: The patient is a 60-year-old gentleman who was admitted to acute hospitalization secondary to COVID-19 and hypoxia. The patient is still requiring high flow oxygen. He still feels somewhat short of breath when going to the bathroom. The patient has denied any pain and he is tolerating his diet. Functional Status: Reports: Pain Controlled, Tolerating Diet - Review of Systems General: Reports: Weakness HEENT: Reports: No Symptoms Pulmonary: Reports: Shortness of Breath, Cough Cardiovascular: Reports: No Symptoms Gastrointestinal: Reports: No Symptoms Genitourinary: Reports: No Symptoms Musculoskeletal: Reports: No Symptoms Skin: Reports: No Symptoms Neurological: Reports: No Symptoms Psychiatric: Reports: No Symptoms - Patient Data Vitals - Most Recent: Last Vital Signs Temp 36.4 C 05/26/20 12:50 Pulse 58 L 05/26/20 12:50 Resp 20 05/26/20 12:50 BP 118/77 05/26/20 12:50 Pulse Ox 94 L 05/26/20 12:50 Weight - Most Recent: 111.584 kg I&O - Last 24 Hours: Intake & Output 05/25/20 05/26/20 05/26/20 22:59 06:59 14:59 Intake Total 1740 700 300 Output Total 600 Balance 1140 700 300 Lab Results Last 24 Hours: Laboratory Results - last 24 hr 05/26/20 05/26/20 05/26/20 Range/Units 05:49 05:49 05:49 WBC 11.18 H (4.23-9.07) K/mm3 RBC 4.39 L (4.63-6.08) M/mm3 Hgb 12.7 L (13.7-17.5) gm/dl Hct 38.5 L (40.1-51.0) % MCV 87.7 (79.0-92.2) fl MCH 28.9 (25.7-32.2) pg MCHC 33.0 (32.2-35.5) g/dl RDW Std Deviation 45.5 H (35.1-43.9) fL Plt Count 456 H (163-337) K/mm3 MPV 9.2 L (9.4-12.3) fl Neut % (Auto) 82.8 H (34.0-67.9) % Lymph % (Auto) 9.0 L (21.8-53.1) % [place] % (Auto) 7.7 (5.3-12.2) % Eos % (Auto) 0 L (0.8-7.0) Baso % (Auto) 0.1 (0.1-1.2) % Neut # (Auto) 9.25 H (1.78-5.38) K/mm3 Lymph # (Auto) 1.01 L (1.32-3.57) K/mm3 [place] # (Auto) 0.86 H (0.30-0.82) K/mm3 Eos # (Auto) 0.00 L (0.04-0.54) K/mm3 Baso # (Auto) 0.01 (0.01-0.08) K/mm3 Manual Slide Review Normal smear D-Dimer, Quantitative 0.78 H (0.19-0.50) mg/L Sodium 140 (136-145) mEq/L Potassium 4.1 (3.5-5.1) mEq/L Chloride 105 (98-107) mEq/L Carbon Dioxide 24 (21-32) mEq/L Anion Gap 15.1 H (5-15) BUN 19 H (7-18) mg/dL Creatinine 0.9 (0.7-1.3) mg/dL Est Cr Clr Drug Dosing 92.38 mL/min Estimated GFR (MDRD) > 60 (>60) mL/min BUN/Creatinine Ratio 21.1 H (14-18) Glucose 127 H (74-106) mg/dL Calcium 8.6 (8.5-10.1) mg/dL Total Bilirubin 0.5 (0.2-1.0) mg/dL AST 24 (15-37) U/L ALT 40 (16-63) U/L Alkaline Phosphatase 73 (46-116) U/L Total Protein 6.9 (6.4-8.2) g/dl Albumin 2.7 L (3.4-5.0) g/dl Globulin 4.2 gm/dL Albumin/Globulin Ratio 0.6 L (1-2) Med Orders - Current: Current Medications Acetaminophen (Tylenol) 650 mg PO Q4H PRN PRN Reason: Pain (Mild 1-3)/fever Albuterol/Ipratropium (Duoneb 3.0-0.5 Mg/3 Ml) 3 ml NEB Q4H PRN PRN Reason: Shortness Of Breath/wheezing Last Admin: 05/25/20 17:45 Dose: 3 ml Documented by: Benazepril HCl (Lotensin) 20 mg PO DAILY [facility] Last Admin: 05/26/20 10:00 Dose: 20 mg Documented by: Dexamethasone (Dexamethasone) 6 mg PO DAILY [facility] [place] Stop: 06/01/20 09:01 Last Admin: 05/26/20 09:58 Dose: 6 mg Documented by: Docusate Sodium (Colace) 100 mg PO BID PRN PRN Reason: Constipation Enoxaparin Sodium (Lovenox) 40 mg SUBCUT BEDTIME [facility] [place] Last Admin: 05/25/20 21:39 Dose: 40 mg Documented by: Remdesivir 100 mg/ Sodium (Chloride) 100 mls @ 100 mls/hr IV Q24H [facility] [place] Stop: 05/27/20 18:59 Last Admin: 05/25/20 18:02 Dose: 100 mls/hr Documented by: Metoprolol Tartrate (Lopressor) 25 mg PO BID [facility] [place] Last Admin: 05/26/20 10:00 Dose: 25 mg Documented by: Ondansetron HCl (Zofran Odt) 4 mg PO Q6H PRN PRN Reason: nausea, able to take PO Oxycodone HCl (Oxycodone) 5 mg PO Q4H PRN PRN Reason: Pain (moderate 4-6) Rosuvastatin Calcium (Crestor) 20 mg PO DAILY [facility] [place] Last Admin: 05/26/20 09:59 Dose: 20 mg Documented by: Sodium Chloride (Saline Flush) 10 ml FLUSH ASDIRECTED PRN PRN Reason: Keep Vein Open Last Admin: 05/23/20 16:04 Dose: 10 ml Documented by: Sodium Chloride (Saline Flush) 10 ml FLUSH ASDIRECTED PRN PRN Reason: Keep Vein Open Temazepam (Restoril) 15 mg PO BEDTIME PRN PRN Reason: Sleep Discontinued Medications Acetaminophen (Tylenol) 975 mg PO NOW ONE Stop: 05/23/20 15:37 Last Admin: 05/23/20 15:50 Dose: 975 mg Documented by: Dexamethasone (Dexamethasone) 6 mg IV DAILY [facility] [place] Last Admin: 05/24/20 09:11 Dose: 6 mg Documented by: Dexamethasone (Dexamethasone) 6 mg IV DAILY [facility] [place] Last Admin: 05/25/20 09:07 Dose: 6 mg Documented by: Sodium Chloride (Normal Saline) 1,000 mls @ 75 mls/hr IV ASDIRECTED [facility] [place] Last Admin: 05/24/20 13:09 Dose: 75 mls/hr Documented by: Sodium Chloride (Normal Saline) Confirm Administered Dose 100 mls @ as directed .ROUTE .STK-MED ONE Stop: 05/23/20 22:27 Last Admin: 05/23/20 23:20 Dose: Not Given Documented by: Remdesivir 200 mg/ Sodium (Chloride) 250 mls @ 250 mls/hr IV ONETIME ONE Stop: 05/23/20 23:44 Last Admin: 05/23/20 23:50 Dose: 250 mls/hr Documented by: Ibuprofen (Motrin) 800 mg PO ONETIME ONE Stop: 05/23/20 17:55 Last Admin: 05/23/20 17:55 Dose: 800 mg Documented by: Influenza Virus Vaccine (Pharmacy To Dose - Influenza Vaccine) 1 each IM ONETIME ONE Stop: 05/24/20 05:08 Influenza Virus Vaccine (Fluzone Quad [id number] Syringe) 60 mcg IM .ONCE ONE Stop: 05/24/20 05:16 Non-Formulary Medication (Ubidecarenone) 100 mg PO DAILY [facility] - Exam Quality Assessment: Supplemental Oxygen General: Alert, Oriented, Cooperative HEENT: Pupils Equal, Pupils Reactive, EOMI Neck: Supple, Trachea Midline Lungs: Clear to Auscultation, Normal Respiratory Effort Cardiovascular: Regular Rate, Regular Rhythm GI/Abdominal Exam: Normal Bowel Sounds, Soft, No Distention (Male) Exam: Deferred Back Exam: Normal Inspection, Full Range of Motion Extremities: Normal Inspection, No Pedal Edema Skin: Warm, Dry, Intact Neurological: No New Focal Deficit Psy/Mental Status: Alert, Normal Affect, Normal Mood Sepsis Event Note - Evaluation Sepsis Screening Result: No Definite Risk - Focused Exam Vital Signs: Vital Signs Temp Pulse Resp BP Pulse Ox Pulse Ox 05/26/20 12:50 36.4 C 58 L 20 118/77 94 L 05/26/20 10:00 69 115/75 05/26/20 09:59 69 115/75 94 L 05/26/20 08:43 95 05/26/20 07:38 36.6 C 63 30 H 145/75 H 93 L 05/26/20 05:36 94 L 05/26/20 05:31 36.3 C 59 L 22 H 134/79 94 L - Problem List & Annotations (1) Acute respiratory failure due to COVID-19 SNOMED Code(s): 155816720 Code(s): U07.1 - COVID-19; J96.00 - ACUTE RESPIRATORY FAILURE, UNSP W HYPOXIA OR HYPERCAPNIA Status: Acute Priority: High Current Visit: Yes (2) Hypertension SNOMED Code(s): 95941155 Code(s): I10 - ESSENTIAL (PRIMARY) HYPERTENSION Status: Chronic Priority: Medium Current Visit: Yes Qualifiers: Hypertension type: essential hypertension Qualified Code(s): I10 - Essential (primary) hypertension (3) Coronary artery disease SNOMED Code(s): 51253512 Code(s): I25.10 - ATHSCL HEART DISEASE OF [place] CORONARY ARTERY W/O ANG PCTRS Status: Chronic Priority: Medium Current Visit: Yes Qualifiers: Coronary Disease-Associated Artery/Lesion type: [place] artery [place] vs. transplanted heart: [place] heart Associated angina: without angina Qualified Code(s): I25.10 - Atherosclerotic heart disease of [place] coronary artery without angina pectoris (4) Hypoxia SNOMED Code(s): 465999729 Code(s): R09.02 - HYPOXEMIA Status: Acute Priority: High Current Visit: Yes (5) Pneumonia due to COVID-19 virus SNOMED Code(s): 687373065861498766 Code(s): U07.1 - COVID-19; J12.89 - OTHER VIRAL PNEUMONIA Status: Acute Priority: High Current Visit: Yes - Problem List Review Problem List Initiated/Reviewed/Updated: Yes - My Orders Last 24 Hours: My Active Orders 05/26/20 09:00 dexAMETHasone 6 mg PO DAILY 05/26/20 09:36 Admission Status [Patient Status] [ADT] Routine - Plan Plan:: The patient today is doing much better. We will continue oxygen to keep his oxygen saturations around 90%. The patient is currently on remdesivir and dexamethasone in both these will be continued until the patient has been discharged. Patient is also on VT E prophylaxis consisting of Lovenox. The patient has a minimally elevated D-dimer and have ordered repeat laboratory studies for this. This will help to determine if the patient is able to be discharged with Xarelto or not. The patient will be continued on his diet as tolerated. He has been encouraged to ambulate. Patient should be appropriate for discharge once his final dose of remdesivir has been given. 05/25/2020 Overall the patient is doing much better. We will keep his oxygen to keep his saturations above 90%. He is currently at 2.5 L/min. Patient will be considered appropriate for discharge after completion of the remdesivir and he will likely need to have Xarelto if his D-dimer continues to be elevated. The patient will be continued on his regular diet as tolerated. He also has been encouraged to ambulate. The patient should be appropriate for discharge tomorrow. Repeat laboratory studies have been ordered. 05/26/2020 The patient is doing better today although he still requires high flow oxygen to keep his saturations up. Patient is on day 3 of his remdesivir and this will be continued. He should be appropriate for discharge upon completion of the remdesivir. We will continue to monitor the patient's D-dimer. He also has been encouraged to ambulate. Continue with his regular diet. Patient should be appropriate for discharge tomorrow. Repeat laboratory studies have been ordered.
[2020-05-26] MEDS: REMDESIVIR (EUA) 100 MG in Sodium Chloride 0.9% 100 ML IV SCH (18:03)
[2020-05-26] MEDS: Enoxaparin 40 MG/0.4 ML Syringe SUBCUT SCH (20:50)
[2020-05-26] MEDS: Albuterol/Ipratropium 3.0-0.5 MG/3 ML Neb Soln NEB PRN (21:02)
[2020-05-27] MEDS: Metoprolol Tartrate 25 MG Tab PO SCH ×2 (09:49→20:41)
[2020-05-27] MEDS: Dexamethasone 4 MG Tab PO SCH (09:50)
[2020-05-27] MEDS: Rosuvastatin 10 MG Tab PO SCH (09:50)
--- NOTE | 2020-05-27 13:54 | PCM.PN ---
<TereFederico M - Last Filed: 05/27/20 13:55> - General Info Date of Service: 05/27/20 Admission Dx/Problem (Free Text): Admission Diagnosis/Problem Admission Diagnosis/Problem Hypoxia Subjective Update: Doing well. Continues on 3 L of oxygen per nasal cannula. Wants to go home today. Functional Status: Reports: Pain Controlled, Tolerating Diet, Ambulating, Incentive Spirometry - Review of Systems General: Reports: No Symptoms HEENT: Reports: No Symptoms Pulmonary: Reports: Cough. Denies: Sputum Cardiovascular: Reports: No Symptoms Gastrointestinal: Reports: No Symptoms Genitourinary: Reports: No Symptoms Musculoskeletal: Reports: No Symptoms Skin: Reports: No Symptoms Neurological: Reports: No Symptoms Psychiatric: Reports: No Symptoms - Patient Data Vitals - Most Recent: Last Vital Signs Temp 98.1 F 05/27/20 11:34 Pulse 66 05/27/20 11:34 Resp 18 05/27/20 11:34 BP 142/81 H 05/27/20 11:34 Pulse Ox 92 L 05/27/20 11:34 Weight - Most Recent: 111.947 kg I&O - Last 24 Hours: Intake & Output 05/26/20 05/27/20 05/27/20 22:59 06:59 14:59 Intake Total 1860 1400 Output Total 350 2000 Balance 1510 -600 Lab Results Last 24 Hours: Laboratory Results - last 24 hr 05/23/20 05/27/20 05/27/20 Range/Units 18:22 06:10 06:10 WBC 10.39 H (4.23-9.07) K/mm3 RBC 4.72 (4.63-6.08) M/mm3 Hgb 13.5 L (13.7-17.5) gm/dl Hct 41.9 (40.1-51.0) % MCV 88.8 (79.0-92.2) fl MCH 28.6 (25.7-32.2) pg MCHC 32.2 (32.2-35.5) g/dl RDW Std Deviation 46.4 H (35.1-43.9) fL Plt Count 508 H (163-337) K/mm3 MPV 9.3 L (9.4-12.3) fl Neut % (Auto) 74.3 H (34.0-67.9) % Lymph % (Auto) 14.3 L (21.8-53.1) % [place] % (Auto) 10.0 (5.3-12.2) % Eos % (Auto) 0 L (0.8-7.0) Baso % (Auto) 0.1 (0.1-1.2) % Neut # (Auto) 7.71 H (1.78-5.38) K/mm3 Lymph # (Auto) 1.49 (1.32-3.57) K/mm3 [place] # (Auto) 1.04 H (0.30-0.82) K/mm3 Eos # (Auto) 0.00 L (0.04-0.54) K/mm3 Baso # (Auto) 0.01 (0.01-0.08) K/mm3 Manual Slide Review Normal smear D-Dimer, Quantitative 0.72 H (0.19-0.50) mg/L Sodium (136-145) mEq/L Potassium (3.5-5.1) mEq/L Chloride (98-107) mEq/L Carbon Dioxide (21-32) mEq/L Anion Gap (5-15) BUN (7-18) mg/dL Creatinine (0.7-1.3) mg/dL Est Cr Clr Drug Dosing mL/min Estimated GFR (MDRD) (>60) mL/min BUN/Creatinine Ratio (14-18) Glucose (74-106) mg/dL Calcium (8.5-10.1) mg/dL Phosphorus (2.6-4.7) mg/dL Magnesium (1.8-2.4) mg/dl Total Bilirubin (0.2-1.0) mg/dL AST (15-37) U/L ALT (16-63) U/L Alkaline Phosphatase (46-116) U/L C-Reactive Protein (<1.0) mg/dL Total Protein (6.4-8.2) g/dl Albumin (3.4-5.0) g/dl Globulin gm/dL Albumin/Globulin Ratio (1-2) 1,25 Dihydroxy Vit D 104.0 H (19.9-79.3) pg/mL //20 Range/Units 06:10 WBC (4.23-9.07) K/mm3 RBC (4.63-6.08) M/mm3 Hgb (13.7-17.5) gm/dl Hct (40.1-51.0) % MCV (79.0-92.2) fl MCH (25.7-32.2) pg MCHC (32.2-35.5) g/dl RDW Std Deviation (35.1-43.9) fL Plt Count (163-337) K/mm3 MPV (9.4-12.3) fl Neut % (Auto) (34.0-67.9) % Lymph % (Auto) (21.8-53.1) % [place] % (Auto) (5.3-12.2) % Eos % (Auto) (0.8-7.0) Baso % (Auto) (0.1-1.2) % Neut # (Auto) (1.78-5.38) K/mm3 Lymph # (Auto) (1.32-3.57) K/mm3 [place] # (Auto) (0.30-0.82) K/mm3 Eos # (Auto) (0.04-0.54) K/mm3 Baso # (Auto) (0.01-0.08) K/mm3 Manual Slide Review D-Dimer, Quantitative (0.19-0.50) mg/L Sodium 139 (136-145) mEq/L Potassium 4.2 (3.5-5.1) mEq/L Chloride 104 (98-107) mEq/L Carbon Dioxide 25 (21-32) mEq/L Anion Gap 14.2 (5-15) BUN 20 H (7-18) mg/dL Creatinine 1.0 (0.7-1.3) mg/dL Est Cr Clr Drug Dosing 83.14 mL/min Estimated GFR (MDRD) > 60 (>60) mL/min BUN/Creatinine Ratio 20.0 H (14-18) Glucose 161 H (74-106) mg/dL Calcium 8.7 (8.5-10.1) mg/dL Phosphorus 3.1 (2.6-4.7) mg/dL Magnesium 2.2 (1.8-2.4) mg/dl Total Bilirubin 0.5 (0.2-1.0) mg/dL AST 33 (15-37) U/L ALT 67 H (16-63) U/L Alkaline Phosphatase 85 (46-116) U/L C-Reactive Protein 3.1 H* (<1.0) mg/dL Total Protein 7.3 (6.4-8.2) g/dl Albumin 2.9 L (3.4-5.0) g/dl Globulin 4.4 gm/dL Albumin/Globulin Ratio 0.7 L (1-2) 1,25 Dihydroxy Vit D (19.9-79.3) pg/mL Med Orders - Current: Current Medications Acetaminophen (Tylenol) 650 mg PO Q4H PRN PRN Reason: Pain (Mild 1-3)/fever Albuterol/Ipratropium (Duoneb 3.0-0.5 Mg/3 Ml) 3 ml NEB Q4H PRN PRN Reason: Shortness Of Breath/wheezing Last Admin: 05/26/20 21:02 Dose: 3 ml Documented by: Benazepril HCl (Lotensin) 20 mg PO DAILY [facility] Last Admin: 05/27/20 09:50 Dose: 20 mg Documented by: Dexamethasone (Dexamethasone) 6 mg PO DAILY [facility] Stop: 06/01/20 09:01 Last Admin: 05/27/20 09:50 Dose: 6 mg Documented by: Docusate Sodium (Colace) 100 mg PO BID PRN PRN Reason: Constipation Enoxaparin Sodium (Lovenox) 40 mg SUBCUT BEDTIME [facility] Last Admin: 05/26/20 20:50 Dose: 40 mg Documented by: Remdesivir 100 mg/ Sodium (Chloride) 100 mls @ 100 mls/hr IV Q24H [facility] Stop: 05/27/20 18:59 Last Admin: 05/26/20 18:03 Dose: 100 mls/hr Documented by: Metoprolol Tartrate (Lopressor) 25 mg PO BID [facility] Last Admin: 05/27/20 09:49 Dose: 25 mg Documented by: Ondansetron HCl (Zofran Odt) 4 mg PO Q6H PRN PRN Reason: nausea, able to take PO Oxycodone HCl (Oxycodone) 5 mg PO Q4H PRN PRN Reason: Pain (moderate 4-6) Rosuvastatin Calcium (Crestor) 20 mg PO DAILY [facility] Last Admin: 05/27/20 09:50 Dose: 20 mg Documented by: Sodium Chloride (Saline Flush) 10 ml FLUSH ASDIRECTED PRN PRN Reason: Keep Vein Open Last Admin: 05/23/20 16:04 Dose: 10 ml Documented by: Sodium Chloride (Saline Flush) 10 ml FLUSH ASDIRECTED PRN PRN Reason: Keep Vein Open Temazepam (Restoril) 15 mg PO BEDTIME PRN PRN Reason: Sleep Discontinued Medications Acetaminophen (Tylenol) 975 mg PO NOW ONE Stop: 05/23/20 15:37 Last Admin: 05/23/20 15:50 Dose: 975 mg Documented by: Dexamethasone (Dexamethasone) 6 mg IV DAILY [facility] Last Admin: 05/24/20 09:11 Dose: 6 mg Documented by: Dexamethasone (Dexamethasone) 6 mg IV DAILY [facility] Last Admin: 05/25/20 09:07 Dose: 6 mg Documented by: Sodium Chloride (Normal Saline) 1,000 mls @ 75 mls/hr IV ASDIRECTED [facility] Last Admin: 05/24/20 13:09 Dose: 75 mls/hr Documented by: Sodium Chloride (Normal Saline) Confirm Administered Dose 100 mls @ as directed .ROUTE .STK-MED ONE Stop: 05/23/20 22:27 Last Admin: 05/23/20 23:20 Dose: Not Given Documented by: Remdesivir 200 mg/ Sodium (Chloride) 250 mls @ 250 mls/hr IV ONETIME ONE Stop: 05/23/20 23:44 Last Admin: 05/23/20 23:50 Dose: 250 mls/hr Documented by: Ibuprofen (Motrin) 800 mg PO ONETIME ONE Stop: 05/23/20 17:55 Last Admin: 05/23/20 17:55 Dose: 800 mg Documented by: Influenza Virus Vaccine (Pharmacy To Dose - Influenza Vaccine) 1 each IM ONETIME ONE Stop: 05/24/20 05:08 Influenza Virus Vaccine (Fluzone Quad Syringe) 60 mcg IM .ONCE ONE Stop: 05/24/20 05:16 Non-Formulary Medication (Ubidecarenone) 100 mg PO DAILY [facility] - Exam Quality Assessment: Supplemental Oxygen (3 L per nasal cannula), DVT Prophylaxis (Lovenox) General: Alert, Oriented, Cooperative, No Acute Distress HEENT: Pupils Equal, Pupils Reactive, Mucous Membr. Moist/[place] Lungs: Wheezing (Fine expiratory wheeze noted bilaterally) Cardiovascular: Regular Rate, Regular Rhythm, No Murmurs GI/Abdominal Exam: Normal Bowel Sounds, Soft, Non-Tender, No Distention (Male) Exam: Deferred Back Exam: Normal Inspection, Full Range of Motion Extremities: Normal Inspection, Normal Range of Motion, Non-Tender, No Pedal Edema, Normal Capillary Refill Peripheral Pulses: 2+: Radial (L), Radial (R), Dorsalis Pedis (L), Dorsalis Pedis (R) Skin: Warm, Dry, Intact Neurological: No New Focal Deficit Psy/Mental Status: Alert, Normal Affect, Normal Mood Sepsis Event Note - Evaluation Sepsis Screening Result: No Definite Risk - Focused Exam Vital Signs: Vital Signs Temp Pulse Resp BP Pulse Ox Pulse Ox 05/27/20 11:34 98.1 F 66 18 142/81 H 92 L 05/27/20 09:50 149/93 H 05/27/20 09:49 66 149/93 H 05/27/20 07:51 97.7 F 66 18 149/93 H 94 L 05/27/20 07:27 97.7 F 63 18 148/110 H 92 L 05/27/20 07:20 91 L 05/27/20 05:22 95 05/27/20 04:28 97.3 F 67 20 141/84 H 94 L - Problem List & Annotations (1) Acute respiratory failure due to COVID-19 SNOMED Code(s): 143281339 Code(s): U07.1 - COVID-19; J96.00 - ACUTE RESPIRATORY FAILURE, UNSP W HYPOXIA OR HYPERCAPNIA Status: Acute Priority: High Current Visit: Yes (2) Hypoxia SNOMED Code(s): 958867507 Code(s): R09.02 - HYPOXEMIA Status: Acute Priority: High Current Visit: Yes (3) Pneumonia due to COVID-19 virus SNOMED Code(s): 625167016699992246 Code(s): U07.1 - COVID-19; J12.89 - OTHER VIRAL PNEUMONIA Status: Acute Priority: High Current Visit: Yes (4) Coronary artery disease SNOMED Code(s): 52343301 Code(s): I25.10 - ATHSCL HEART DISEASE OF [place] CORONARY ARTERY W/O ANG PCTRS Status: Chronic Priority: Medium Current Visit: Yes Qualifiers: Coronary Disease-Associated Artery/Lesion type: [place] artery [place] vs. transplanted heart: [place] heart Associated angina: without angina Qualified Code(s): I25.10 - Atherosclerotic heart disease of [place] coronary artery without angina pectoris (5) Hypertension SNOMED Code(s): 03653997 Code(s): I10 - ESSENTIAL (PRIMARY) HYPERTENSION Status: Chronic Priority: Medium Current Visit: Yes Qualifiers: Hypertension type: essential hypertension Qualified Code(s): I10 - Essential (primary) hypertension - Problem List Review Problem List Initiated/Reviewed/Updated: Yes - My Orders Last 24 Hours: My Active Orders 05/27/20 13:45 Chest 1V Frontal [CR] Routine 05/28/20 05:11 C-REACTIVE PROTEIN [CHEM] AM CBC WITH AUTO DIFF [HEME] AM COMPREHENSIVE METABOLIC PN,CMP [CHEM] AM D-DIMER QUANTITATIVE [COAG] AM MAGNESIUM [CHEM] AM - Assessment Assessment:: 05/27/20 * Day 5 of remdesivir and dexamethasone * Currently on 3 L of oxygen per nasal cannula * Is using his incentive spirometer * States his appetite is good * Is still needing albuterol treatments * Is up independently in the room * WBC 10.39 * D-dimer 0.72 * BUN 20 * Creatinine 1.0 * GFR greater than 60 * C-reactive protein 3.1 * Vital signs are stable. And he has not had a fever in the past 24 hours. - Plan Plan:: The patient today is doing much better. We will continue oxygen to keep his oxygen saturations around 90%. The patient is currently on remdesivir and dexamethasone in both these will be continued until the patient has been discharged. Patient is also on VT E prophylaxis consisting of Lovenox. The patient has a minimally elevated D-dimer and have ordered repeat laboratory studies for this. This will help to determine if the patient is able to be discharged with Xarelto or not. The patient will be continued on his diet as tolerated. He has been encouraged to ambulate. Patient should be appropriate for discharge once his final dose of remdesivir has been given. 05/25/2020 Overall the patient is doing much better. We will keep his oxygen to keep his saturations above 90%. He is currently at 2.5 L/min. Patient will be considered appropriate for discharge after completion of the remdesivir and he will likely need to have Xarelto if his D-dimer continues to be elevated. The patient will be continued on his regular diet as tolerated. He also has been encouraged to ambulate. The patient should be appropriate for discharge tomorrow. Repeat laboratory studies have been ordered. 05/26/2020 The patient is doing better today although he still requires high flow oxygen to keep his saturations up. Patient is on day 3 of his remdesivir and this will be continued. He should be appropriate for discharge upon completion of the remdesivir. We will continue to monitor the patient's D-dimer. He also has been encouraged to ambulate. Continue with his regular diet. Patient should be appropriate for discharge tomorrow. Repeat laboratory studies have been ordered. 05/27/20 The patient reports that he is doing much better today. He is still on 3 L of oxygen per nasal cannula. He is requesting to go home after his last remdesivir dose this evening. I spoke with the patient and I told him that if he would be able to be titrated down to 2 L we could possibly allow him to go home on home O2. However, respiratory care attempted to titrate him down to 2 L and qualify him for home O2 and he was not able to tolerate this. We will keep him in the hospital for another 24 hours and look at a potential discharge for tomorrow. We will do a follow-up chest x-ray today. Encourage ambulation and continue to do incentive spirometer. Repeat lab work in the a.m. <Cy Fuller - Last Filed: 05/27/20 17:52> - Patient Data Vitals - Most Recent: Last Vital Signs Temp 36.5 C 05/27/20 15:24 Pulse 63 05/27/20 15:24 Resp 18 05/27/20 15:24 BP 113/86 05/27/20 15:24 Pulse Ox 91 L 05/27/20 15:28 I&O - Last 24 Hours: Intake & Output 05/27/20 05/27/20 05/27/20 06:59 14:59 22:59 Intake Total 9793 961 1501 Output Total 2000 400 Balance -328 925 3932 Lab Results Last 24 Hours: Laboratory Results - last 24 hr 05/23/20 05/27/20 05/27/20 Range/Units 18:22 06:10 06:10 WBC 10.39 H (4.23-9.07) K/mm3 RBC 4.72 (4.63-6.08) M/mm3 Hgb 13.5 L (13.7-17.5) gm/dl Hct 41.9 (40.1-51.0) % MCV 88.8 (79.0-92.2) fl MCH 28.6 (25.7-32.2) pg MCHC 32.2 (32.2-35.5) g/dl RDW Std Deviation 46.4 H (35.1-43.9) fL Plt Count 508 H (163-337) K/mm3 MPV 9.3 L (9.4-12.3) fl Neut % (Auto) 74.3 H (34.0-67.9) % Lymph % (Auto) 14.3 L (21.8-53.1) % [place] % (Auto) 10.0 (5.3-12.2) % Eos % (Auto) 0 L (0.8-7.0) Baso % (Auto) 0.1 (0.1-1.2) % Neut # (Auto) 7.71 H (1.78-5.38) K/mm3 Lymph # (Auto) 1.49 (1.32-3.57) K/mm3 [place] # (Auto) 1.04 H (0.30-0.82) K/mm3 Eos # (Auto) 0.00 L (0.04-0.54) K/mm3 Baso # (Auto) 0.01 (0.01-0.08) K/mm3 Manual Slide Review Normal smear D-Dimer, Quantitative 0.72 H (0.19-0.50) mg/L Sodium (136-145) mEq/L Potassium (3.5-5.1) mEq/L Chloride (98-107) mEq/L Carbon Dioxide (21-32) mEq/L Anion Gap (5-15) BUN (7-18) mg/dL Creatinine (0.7-1.3) mg/dL Est Cr Clr Drug Dosing mL/min Estimated GFR (MDRD) (>60) mL/min BUN/Creatinine Ratio (14-18) Glucose (74-106) mg/dL Calcium (8.5-10.1) mg/dL Phosphorus (2.6-4.7) mg/dL Magnesium (1.8-2.4) mg/dl Total Bilirubin (0.2-1.0) mg/dL AST (15-37) U/L ALT (16-63) U/L Alkaline Phosphatase (46-116) U/L C-Reactive Protein (<1.0) mg/dL Total Protein (6.4-8.2) g/dl Albumin (3.4-5.0) g/dl Globulin gm/dL Albumin/Globulin Ratio (1-2) 1,25 Dihydroxy Vit D 104.0 H (19.9-79.3) pg/mL 05/27/20 Range/Units 06:10 WBC (4.23-9.07) K/mm3 RBC (4.63-6.08) M/mm3 Hgb (13.7-17.5) gm/dl Hct (40.1-51.0) % MCV (79.0-92.2) fl MCH (25.7-32.2) pg MCHC (32.2-35.5) g/dl RDW Std Deviation (35.1-43.9) fL Plt Count (163-337) K/mm3 MPV (9.4-12.3) fl Neut % (Auto) (34.0-67.9) % Lymph % (Auto) (21.8-53.1) % [place] % (Auto) (5.3-12.2) % Eos % (Auto) (0.8-7.0) Baso % (Auto) (0.1-1.2) % Neut # (Auto) (1.78-5.38) K/mm3 Lymph # (Auto) (1.32-3.57) K/mm3 [place] # (Auto) (0.30-0.82) K/mm3 Eos # (Auto) (0.04-0.54) K/mm3 Baso # (Auto) (0.01-0.08) K/mm3 Manual Slide Review D-Dimer, Quantitative (0.19-0.50) mg/L Sodium 139 (136-145) mEq/L Potassium 4.2 (3.5-5.1) mEq/L Chloride 104 (98-107) mEq/L Carbon Dioxide 25 (21-32) mEq/L Anion Gap 14.2 (5-15) BUN 20 H (7-18) mg/dL Creatinine 1.0 (0.7-1.3) mg/dL Est Cr Clr Drug Dosing 83.14 mL/min Estimated GFR (MDRD) > 60 (>60) mL/min BUN/Creatinine Ratio 20.0 H (14-18) Glucose 161 H (74-106) mg/dL Calcium 8.7 (8.5-10.1) mg/dL Phosphorus 3.1 (2.6-4.7) mg/dL Magnesium 2.2 (1.8-2.4) mg/dl Total Bilirubin 0.5 (0.2-1.0) mg/dL AST 33 (15-37) U/L ALT 67 H (16-63) U/L Alkaline Phosphatase 85 (46-116) U/L C-Reactive Protein 3.1 H* (<1.0) mg/dL Total Protein 7.3 (6.4-8.2) g/dl Albumin 2.9 L (3.4-5.0) g/dl Globulin 4.4 gm/dL Albumin/Globulin Ratio 0.7 L (1-2) 1,25 Dihydroxy Vit D (19.9-79.3) pg/mL Med Orders - Current: Current Medications Acetaminophen (Tylenol) 650 mg PO Q4H PRN PRN Reason: Pain (Mild 1-3)/fever Albuterol/Ipratropium (Duoneb 3.0-0.5 Mg/3 Ml) 3 ml NEB Q4H PRN PRN Reason: Shortness Of Breath/wheezing Last Admin: 05/26/20 21:02 Dose: 3 ml Documented by: Benazepril HCl (Lotensin) 20 mg PO DAILY [facility] Last Admin: 05/27/20 09:50 Dose: 20 mg Documented by: Dexamethasone (Dexamethasone) 6 mg PO DAILY [facility] Stop: 06/01/20 09:01 Last Admin: 05/27/20 09:50 Dose: 6 mg Documented by: Docusate Sodium (Colace) 100 mg PO BID PRN PRN Reason: Constipation Enoxaparin Sodium (Lovenox) 40 mg SUBCUT BEDTIME [facility] Last Admin: 05/26/20 20:50 Dose: 40 mg Documented by: Remdesivir 100 mg/ Sodium (Chloride) 100 mls @ 100 mls/hr IV Q24H [facility] Stop: 05/27/20 18:59 Last Admin: 05/27/20 17:38 Dose: 100 mls/hr Documented by: Metoprolol Tartrate (Lopressor) 25 mg PO BID [facility] Last Admin: 05/27/20 09:49 Dose: 25 mg Documented by: Ondansetron HCl (Zofran Odt) 4 mg PO Q6H PRN PRN Reason: nausea, able to take PO Oxycodone HCl (Oxycodone) 5 mg PO Q4H PRN PRN Reason: Pain (moderate 4-6) Rosuvastatin Calcium (Crestor) 20 mg PO DAILY [facility] Last Admin: 05/27/20 09:50 Dose: 20 mg Documented by: Sodium Chloride (Saline Flush) 10 ml FLUSH ASDIRECTED PRN PRN Reason: Keep Vein Open Last Admin: 05/23/20 16:04 Dose: 10 ml Documented by: Sodium Chloride (Saline Flush) 10 ml FLUSH ASDIRECTED PRN PRN Reason: Keep Vein Open Temazepam (Restoril) 15 mg PO BEDTIME PRN PRN Reason: Sleep Discontinued Medications Acetaminophen (Tylenol) 975 mg PO NOW ONE Stop: 05/23/20 15:37 Last Admin: 05/23/20 15:50 Dose: 975 mg Documented by: Dexamethasone (Dexamethasone) 6 mg IV DAILY [facility] Last Admin: 05/24/20 09:11 Dose: 6 mg Documented by: Dexamethasone (Dexamethasone) 6 mg IV DAILY [facility] Last Admin: 05/25/20 09:07 Dose: 6 mg Documented by: Sodium Chloride (Normal Saline) 1,000 mls @ 75 mls/hr IV ASDIRECTED [facility] Last Admin: 05/24/20 13:09 Dose: 75 mls/hr Documented by: Sodium Chloride (Normal Saline) Confirm Administered Dose 100 mls @ as directed .ROUTE .STK-MED ONE Stop: 05/23/20 22:27 Last Admin: 05/23/20 23:20 Dose: Not Given Documented by: Remdesivir 200 mg/ Sodium (Chloride) 250 mls @ 250 mls/hr IV ONETIME ONE Stop: 05/23/20 23:44 Last Admin: 05/23/20 23:50 Dose: 250 mls/hr Documented by: Ibuprofen (Motrin) 800 mg PO ONETIME ONE Stop: 05/23/20 17:55 Last Admin: 05/23/20 17:55 Dose: 800 mg Documented by: Influenza Virus Vaccine (Pharmacy To Dose - Influenza Vaccine) 1 each IM ONETIME ONE Stop: 05/24/20 05:08 Influenza Virus Vaccine (Fluzone Quad Syringe) 60 mcg IM .ONCE ONE Stop: 05/24/20 05:16 Non-Formulary Medication (Ubidecarenone) 100 mg PO DAILY [facility] Sepsis Event Note - Focused Exam Vital Signs: Vital Signs Temp Pulse Resp BP Pulse Ox Pulse Ox Pulse Ox 05/27/20 15:28 91 L 05/27/20 15:24 36.5 C 63 18 113/86 93 L 05/27/20 13:55 87 L 05/27/20 13:45 83 L 05/27/20 13:03 93 L 05/27/20 11:34 36.7 C 66 18 142/81 H 92 L 05/27/20 09:50 149/93 H 05/27/20 09:49 66 149/93 H 05/27/20 07:51 36.5 C 66 18 149/93 H 94 L 05/27/20 07:27 36.5 C 63 18 148/110 H 92 L 05/27/20 07:20 91 L - Problem List & Annotations (1) Acute respiratory failure due to COVID-19 SNOMED Code(s): 072162226 Code(s): U07.1 - COVID-19; J96.00 - ACUTE RESPIRATORY FAILURE, UNSP W HYPOXIA OR HYPERCAPNIA Status: Acute Priority: High Current Visit: Yes (2) Hypertension SNOMED Code(s): 25730141 Code(s): I10 - ESSENTIAL (PRIMARY) HYPERTENSION Status: Chronic Priority: Medium Current Visit: Yes Qualifiers: Hypertension type: essential hypertension Qualified Code(s): I10 - Essential (primary) hypertension (3) Coronary artery disease SNOMED Code(s): 68648702 Code(s): I25.10 - ATHSCL HEART DISEASE OF [place] CORONARY ARTERY W/O ANG PCTRS Status: Chronic Priority: Medium Current Visit: Yes Qualifiers: Coronary Disease-Associated Artery/Lesion type: [place] artery [place] vs. transplanted heart: [place] heart Associated angina: without angina Qualified Code(s): I25.10 - Atherosclerotic heart disease of [place] coronary artery without angina pectoris (4) Hypoxia SNOMED Code(s): 090415026 Code(s): R09.02 - HYPOXEMIA Status: Acute Priority: High Current Visit: Yes (5) Pneumonia due to COVID-19 virus SNOMED Code(s): 953374816295405760 Code(s): U07.1 - COVID-19; J12.89 - OTHER VIRAL PNEUMONIA Status: Acute Priority: High Current Visit: Yes - My Orders Last 24 Hours: My Active Orders 05/26/20 Dinner Heart Healthy Diet [DIET] - Plan Plan:: I have seen and examined the patient independent of nurse practitioner Federico Carranza and I have discussed the case with her. I have reviewed and agree with the assessment and plan as outlined for this patient by her. Please see orders.
[2020-05-27] MEDS: REMDESIVIR (EUA) 100 MG in Sodium Chloride 0.9% 100 ML IV SCH (17:38)
[2020-05-27] MEDS: Enoxaparin 40 MG/0.4 ML Syringe SUBCUT SCH (20:41)
[2020-05-27] MEDS: Albuterol/Ipratropium 3.0-0.5 MG/3 ML Neb Soln NEB PRN (21:01)
[2020-05-28] MEDS: Dexamethasone 4 MG Tab PO SCH (09:48)
[2020-05-28] MEDS: Rosuvastatin 10 MG Tab PO SCH (09:49)
[2020-05-28] MEDS: Metoprolol Tartrate 25 MG Tab PO SCH ×2 (09:50→20:33)
--- NOTE | 2020-05-28 14:15 | PCM.PN ---
- General Info Date of Service: 05/28/20 Admission Dx/Problem (Free Text): Admission Diagnosis/Problem Admission Diagnosis/Problem Hypoxia Subjective Update: Reports feeling well today. Is wanting to go home but is still on 3 L of oxygen per nasal cannula. Functional Status: Reports: Pain Controlled, Tolerating Diet, Ambulating, Incentive Spirometry - Review of Systems General: Reports: No Symptoms HEENT: Reports: No Symptoms Pulmonary: Reports: No Symptoms Cardiovascular: Reports: No Symptoms Gastrointestinal: Reports: No Symptoms Genitourinary: Reports: No Symptoms Musculoskeletal: Reports: No Symptoms Skin: Reports: No Symptoms Neurological: Reports: No Symptoms Psychiatric: Reports: No Symptoms - Patient Data Vitals - Most Recent: Last Vital Signs Temp 97.5 F 05/28/20 12:50 Pulse 59 L 05/28/20 12:50 Resp 16 05/28/20 12:50 BP 131/81 05/28/20 12:50 Pulse Ox 91 L 05/28/20 13:13 Weight - Most Recent: 246 lb 6.4 oz I&O - Last 24 Hours: Intake & Output 05/27/20 05/28/20 05/28/20 22:59 06:59 14:59 Intake Total 2160 1300 540 Output Total 400 1800 Balance 1760 -500 540 Lab Results Last 24 Hours: Laboratory Results - last 24 hr 05/28/20 05/28/20 05/28/20 Range/Units 04:57 04:57 04:57 WBC 10.48 H (4.23-9.07) K/mm3 RBC 4.61 L (4.63-6.08) M/mm3 Hgb 13.1 L (13.7-17.5) gm/dl Hct 40.9 (40.1-51.0) % MCV 88.7 (79.0-92.2) fl MCH 28.4 (25.7-32.2) pg MCHC 32.0 L (32.2-35.5) g/dl RDW Std Deviation 46.6 H (35.1-43.9) fL Plt Count 483 H (163-337) K/mm3 MPV 9.2 L (9.4-12.3) fl Neut % (Auto) 73.1 H (34.0-67.9) % Lymph % (Auto) 14.6 L (21.8-53.1) % [place] % (Auto) 9.4 (5.3-12.2) % Eos % (Auto) 0 L (0.8-7.0) Baso % (Auto) 0.4 (0.1-1.2) % Neut # (Auto) 7.67 H (1.78-5.38) K/mm3 Lymph # (Auto) 1.53 (1.32-3.57) K/mm3 [place] # (Auto) 0.98 H (0.30-0.82) K/mm3 Eos # (Auto) 0.00 L (0.04-0.54) K/mm3 Baso # (Auto) 0.04 (0.01-0.08) K/mm3 Manual Slide Review Normal smear D-Dimer, Quantitative 0.70 H (0.19-0.50) mg/L Sodium 139 (136-145) mEq/L Potassium 4.3 (3.5-5.1) mEq/L Chloride 103 (98-107) mEq/L Carbon Dioxide 26 (21-32) mEq/L Anion Gap 14.3 (5-15) BUN 20 H (7-18) mg/dL Creatinine 1.0 (0.7-1.3) mg/dL Est Cr Clr Drug Dosing 83.14 mL/min Estimated GFR (MDRD) > 60 (>60) mL/min BUN/Creatinine Ratio 20.0 H (14-18) Glucose 159 H (74-106) mg/dL Calcium 8.6 (8.5-10.1) mg/dL Magnesium 2.2 (1.8-2.4) mg/dl Total Bilirubin 0.6 (0.2-1.0) mg/dL AST 25 (15-37) U/L ALT 74 H (16-63) U/L Alkaline Phosphatase 75 (46-116) U/L C-Reactive Protein 3.1 H* (<1.0) mg/dL Total Protein 6.9 (6.4-8.2) g/dl Albumin 2.8 L (3.4-5.0) g/dl Globulin 4.1 gm/dL Albumin/Globulin Ratio 0.7 L (1-2) Med Orders - Current: Current Medications Acetaminophen (Tylenol) 650 mg PO Q4H PRN PRN Reason: Pain (Mild 1-3)/fever Albuterol/Ipratropium (Duoneb 3.0-0.5 Mg/3 Ml) 3 ml NEB Q4H PRN PRN Reason: Shortness Of Breath/wheezing Last Admin: 05/27/20 21:01 Dose: 3 ml Documented by: Benazepril HCl (Lotensin) 20 mg PO DAILY [facility] Last Admin: 05/28/20 09:49 Dose: 20 mg Documented by: Dexamethasone (Dexamethasone) 6 mg PO DAILY [facility] Stop: 06/01/20 09:01 Last Admin: 05/28/20 09:48 Dose: 6 mg Documented by: Docusate Sodium (Colace) 100 mg PO BID PRN PRN Reason: Constipation Enoxaparin Sodium (Lovenox) 40 mg SUBCUT BEDTIME [facility] Last Admin: 05/27/20 20:41 Dose: 40 mg Documented by: Metoprolol Tartrate (Lopressor) 25 mg PO BID [facility] Last Admin: 05/28/20 09:50 Dose: 25 mg Documented by: Ondansetron HCl (Zofran Odt) 4 mg PO Q6H PRN PRN Reason: nausea, able to take PO Oxycodone HCl (Oxycodone) 5 mg PO Q4H PRN PRN Reason: Pain (moderate 4-6) Rosuvastatin Calcium (Crestor) 20 mg PO DAILY [facility] Last Admin: 05/28/20 09:49 Dose: 20 mg Documented by: Sodium Chloride (Saline Flush) 10 ml FLUSH ASDIRECTED PRN PRN Reason: Keep Vein Open Last Admin: 05/23/20 16:04 Dose: 10 ml Documented by: Sodium Chloride (Saline Flush) 10 ml FLUSH ASDIRECTED PRN PRN Reason: Keep Vein Open Temazepam (Restoril) 15 mg PO BEDTIME PRN PRN Reason: Sleep Discontinued Medications Acetaminophen (Tylenol) 975 mg PO NOW ONE Stop: 05/23/20 15:37 Last Admin: 05/23/20 15:50 Dose: 975 mg Documented by: Dexamethasone (Dexamethasone) 6 mg IV DAILY [facility] Last Admin: 05/24/20 09:11 Dose: 6 mg Documented by: Dexamethasone (Dexamethasone) 6 mg IV DAILY [facility] Last Admin: 05/25/20 09:07 Dose: 6 mg Documented by: Sodium Chloride (Normal Saline) 1,000 mls @ 75 mls/hr IV ASDIRECTED BREONNA Last Admin: 05/24/20 13:09 Dose: 75 mls/hr Documented by: Remdesivir 100 mg/ Sodium (Chloride) 100 mls @ 100 mls/hr IV Q24H BREONNA Stop: 05/27/20 18:59 Last Admin: 05/27/20 17:38 Dose: 100 mls/hr Documented by: Sodium Chloride (Normal Saline) Confirm Administered Dose 100 mls @ as directed .ROUTE .STK-MED ONE Stop: 05/23/20 22:27 Last Admin: 05/23/20 23:20 Dose: Not Given Documented by: Remdesivir 200 mg/ Sodium (Chloride) 250 mls @ 250 mls/hr IV ONETIME ONE Stop: 05/23/20 23:44 Last Admin: 05/23/20 23:50 Dose: 250 mls/hr Documented by: Ibuprofen (Motrin) 800 mg PO ONETIME ONE Stop: 05/23/20 17:55 Last Admin: 05/23/20 17:55 Dose: 800 mg Documented by: Influenza Virus Vaccine (Pharmacy To Dose - Influenza Vaccine) 1 each IM ONETIME ONE Stop: 05/24/20 05:08 Influenza Virus Vaccine (Fluzone Quad [id number] Syringe) 60 mcg IM .ONCE ONE Stop: 05/24/20 05:16 Non-Formulary Medication (Ubidecarenone) 100 mg PO DAILY BREONNA - Exam Quality Assessment: Supplemental Oxygen (3 Liters per nasal cannula), DVT Prophylaxis (Lovenox) General: Alert, Oriented, Cooperative, No Acute Distress HEENT: Pupils Equal, Pupils Reactive, Mucous Membr. Moist/[place] Neck: Supple, Trachea Midline. No: Lymphadenopathy Lungs: Normal Respiratory Effort, Crackles (Fine crackles noted to bilateral bases.) Cardiovascular: Regular Rate, Regular Rhythm, No Murmurs GI/Abdominal Exam: Normal Bowel Sounds, Soft, Non-Tender, No Distention (Male) Exam: Deferred Back Exam: Normal Inspection, Full Range of Motion Extremities: Normal Inspection, Normal Range of Motion, Non-Tender, No Pedal Edema, Normal Capillary Refill Peripheral Pulses: 2+: Radial (L), Radial (R), Dorsalis Pedis (L), Dorsalis Pedis (R) Skin: Warm, Dry, Intact Neurological: No New Focal Deficit Psy/Mental Status: Alert, Normal Affect, Normal Mood Sepsis Event Note - Evaluation Sepsis Screening Result: No Definite Risk - Focused Exam Vital Signs: Vital Signs Temp Pulse Resp BP Pulse Ox Pulse Ox 05/28/20 13:13 91 L 05/28/20 12:50 97.5 F 59 L 16 131/81 94 L 05/28/20 09:50 57 L 154/88 H 05/28/20 09:49 154/88 H 05/28/20 07:22 97.5 F 57 L 20 154/88 H 94 L 05/28/20 05:44 93 L 05/28/20 03:27 97.9 F 58 L 18 146/94 H 94 L - Problem List & Annotations (1) Acute respiratory failure due to COVID-19 SNOMED Code(s): 815867956 Code(s): U07.1 - COVID-19; J96.00 - ACUTE RESPIRATORY FAILURE, UNSP W HYPOXIA OR HYPERCAPNIA Status: Acute Priority: High Current Visit: Yes (2) Hypoxia SNOMED Code(s): 031264872 Code(s): R09.02 - HYPOXEMIA Status: Acute Priority: High Current Visit: Yes (3) Pneumonia due to COVID-19 virus SNOMED Code(s): 397783418587599577 Code(s): U07.1 - COVID-19; J12.89 - OTHER VIRAL PNEUMONIA Status: Acute Priority: High Current Visit: Yes (4) Coronary artery disease SNOMED Code(s): 62120497 Code(s): I25.10 - ATHSCL HEART DISEASE OF [place] CORONARY ARTERY W/O ANG PCTRS Status: Chronic Priority: Medium Current Visit: Yes Qualifiers: Coronary Disease-Associated Artery/Lesion type: [place] artery [place] vs. transplanted heart: [place] heart Associated angina: without angina Qualified Code(s): I25.10 - Atherosclerotic heart disease of [place] coronary artery without angina pectoris (5) Hypertension SNOMED Code(s): 87177120 Code(s): I10 - ESSENTIAL (PRIMARY) HYPERTENSION Status: Chronic Priority: Medium Current Visit: Yes Qualifiers: Hypertension type: essential hypertension Qualified Code(s): I10 - E ssential (primary) hypertension - Problem List Review Problem List Initiated/Reviewed/Updated: Yes - My Orders Last 24 Hours: My Active Orders 05/27/20 13:45 Chest 1V Frontal [CR] Routine - Assessment Assessment:: 05/27/20 * Day 5 of remdesivir and dexamethasone * Currently on 3 L of oxygen per nasal cannula * Is using his incentive spirometer * States his appetite is good * Is still needing albuterol treatments * Is up independently in the room * WBC 10.39 * D-dimer 0.72 * BUN 20 * Creatinine 1.0 * GFR greater than 60 * C-reactive protein 3.1 * Vital signs are stable. And he has not had a fever in the past 24 hours. 05/28/20 * Day 6 of dexamethasone * Has received remdesivir and convalescent plasma. - Plan Plan:: I have seen and examined the patient independent of nurse practitioner Federico Carranza and I have discussed the case with her. I have reviewed and agree with the assessment and plan as outlined for this patient by her. Please see orders.
[2020-05-28] MEDS: Enoxaparin 40 MG/0.4 ML Syringe SUBCUT SCH (20:33)
[2020-05-29] MEDS: Dexamethasone 4 MG Tab PO SCH (08:21)
[2020-05-29] MEDS: Metoprolol Tartrate 25 MG Tab PO SCH (08:22)
[2020-05-29] MEDS: Rosuvastatin 10 MG Tab PO SCH (08:22)
--- NOTE | 2020-05-29 12:07 | PCM.DCSUM1 ---
<Federico Carranza - Last Filed: 05/29/20 12:11> Discharge Summary - Hospital Course HPI Initial Comments: The patient is a 60-year-old gentleman who had presented to the emergency department after feeling ill for about 7 days. The patient had been exposed to a COVID-19 positive person. The patient's main concern is that he had been running a fever as high as 103. Patient also reports that he has had loss of taste and smell. Headache along with severe myalgias and worsening dyspnea. The patient does have a history of coronary artery disease and hypertension. Patient has been compliant with his medications. He does not smoke. The patient was positive for COVID-19 in the emergency department. The patient has had no specific aggravating or relieving factors however, he says the Tylenol has helped his fever. Patient has been in his usual state of health up until the present time. Diagnosis: Stroke: No - Discharge Data Discharge Date: 05/29/20 (Admit date: 05/23/20) Discharge Disposition: Home, Self-Care 01 Condition: Good - Referral to Home Health Primary Care Physician: Jolanta Cifuentes NP - Discharge Diagnosis/Problem(s) (1) Acute respiratory failure due to COVID-19 SNOMED Code(s): 669874659 ICD Code: U07.1 - COVID-19; J96.00 - ACUTE RESPIRATORY FAILURE, UNSP W HYPOXIA OR HYPERCAPNIA Status: Acute Priority: High (2) Hypoxia SNOMED Code(s): 313870953 ICD Code: R09.02 - HYPOXEMIA Status: Acute Priority: High (3) Pneumonia due to COVID-19 virus SNOMED Code(s): 094439769308871815 ICD Code: U07.1 - COVID-19; J12.89 - OTHER VIRAL PNEUMONIA Status: Acute Priority: High (4) Coronary artery disease SNOMED Code(s): 54439286 ICD Code: I25.10 - ATHSCL HEART DISEASE OF [place] CORONARY ARTERY W/O ANG PCTRS Status: Chronic Priority: Medium Qualifiers: Coronary Disease-Associated Artery/Lesion type: [place] artery [place] vs. transplanted heart: [place] heart Associated angina: without angina Qualified Code(s): I25.10 - Atherosclerotic heart disease of [place] coronary artery without angina pectoris (5) Hypertension SNOMED Code(s): 42163438 ICD Code: I10 - ESSENTIAL (PRIMARY) HYPERTENSION Status: Chronic Priority: Medium Qualifiers: Hypertension type: essential hypertension Qualified Code(s): I10 - Essential (primary) hypertension - Patient Summary/Data Hospital Course: 05/27/20 * Day 5 of remdesivir and dexamethasone * Currently on 3 L of oxygen per nasal cannula * Is using his incentive spirometer * States his appetite is good * Is still needing albuterol treatments * Is up independently in the room * WBC 10.39 * D-dimer 0.72 * BUN 20 * Creatinine 1.0 * GFR greater than 60 * C-reactive protein 3.1 * Vital signs are stable. And he has not had a fever in the past 24 hours. 05/28/20 * Day 6 of dexamethasone * Has received remdesivir and convalescent plasma. The patient today is doing much better. We will continue oxygen to keep his oxygen saturations around 90%. The patient is currently on remdesivir and dexamethasone in both these will be continued until the patient has been discharged. Patient is also on VT E prophylaxis consisting of Lovenox. The patient has a minimally elevated D-dimer and have ordered repeat laboratory studies for this. This will help to determine if the patient is able to be discharged with Xarelto or not. The patient will be continued on his diet as tolerated. He has been encouraged to ambulate. Patient should be appropriate for discharge once his final dose of remdesivir has been given. Plan 05/25/2020 Overall the patient is doing much better. We will keep his oxygen to keep his saturations above 90%. He is currently at 2.5 L/min. Patient will be considered appropriate for discharge after completion of the remdesivir and he will likely need to have Xarelto if his D-dimer continues to be elevated. The patient will be continued on his regular diet as tolerated. He also has been encouraged to ambulate. The patient should be appropriate for discharge tomorrow. Repeat laboratory studies have been ordered. 05/26/2020 The patient is doing better today although he still requires high flow oxygen to keep his saturations up. Patient is on day 3 of his remdesivir and this will be continued. He should be appropriate for discharge upon completion of the remdesivir. We will continue to monitor the patient's D-dimer. He also has been encouraged to ambulate. Continue with his regular diet. Patient should be appropriate for discharge tomorrow. Repeat laboratory studies have been ordered. 05/27/20 The patient reports that he is doing much better today. He is still on 3 L of oxygen per nasal cannula. He is requesting to go home after his last remdesivir dose this evening. I spoke with the patient and I told him that if he would be able to be titrated down to 2 L we could possibly allow him to go home on home O2. However, respiratory care attempted to titrate him down to 2 L and qualify him for home O2 and he was not able to tolerate this. We will keep him in the hospital for another 24 hours and look at a potential discharge for tomorrow. We will do a follow-up chest x-ray today. Encourage ambulation and continue to do incentive spirometer. Repeat lab work in the a.m. 05/29/20 The patient has received the full 5-day course of remdesivir and 2 units of convalescent plasma. He is currently on day 6 of dexamethasone treatment. We however are not able to get have weaned off of oxygen, so we have qualified him for home O2. He will continue on 2 L of oxygen per nasal cannula at all times until he follows up with his primary care provider in 5 to 7 days. He will continue on 4 more days of dexamethasone treatment as well. And nebulizer unit will be sent home with the patient to use every 4 hours as needed for wheezing or shortness of breath. Encouraging the patient to take his incentive spirometer and Acapella at home and to use it for approximately the next month or so. Also encouraged influenza vaccination. The patient will need to follow- up with his primary care provider early next week and hopefully be titrated off his oxygen. - Patient Instructions Diet: Regular Diet as Tolerated Activity: As Tolerated - Discharge Plan *PRESCRIPTION DRUG MONITORING PROGRAM REVIEWED*: Not Applicable *COPY OF PRESCRIPTION DRUG MONITORING REPORT IN PATIENT JAYJAY: Not Applicable Prescriptions/Med Rec: dexAMETHasone [Dexamethasone] 6 mg PO DAILY #4 tablet Albuterol/Ipratropium [DuoNeb 3.0-0.5 MG/3 ML] 3 ml NEB Q4H PRN #30 ampule PRN Reason: Shortness Of Breath/wheezing Home Medications: Home Meds Benazepril [Lotensin] 20 mg PO DAILY 05/23/20 [History] Metoprolol Tartrate [Lopressor] 25 mg PO BID 05/23/20 [History] Ubidecarenone [Co Q-10] 100 mg PO DAILY 05/23/20 [History] atorvaSTATin [Lipitor] 80 mg PO DAILY 05/23/20 [History] Albuterol/Ipratropium [DuoNeb 3.0-0.5 MG/3 ML] 3 ml NEB Q4H PRN #30 ampule 05/29/20 [Rx] dexAMETHasone [Dexamethasone] 6 mg PO DAILY #4 tablet 05/29/20 [Rx] Oxygen Therapy Mode: Nasal Cannula Oxygen Flow Rate (L/min): 2 Maintain SpO2% greater than: 90 Patient Handouts: COVID-19 Frequently Asked Questions, DASH Eating Plan, Heart Failure Action Plan, COVID-19: How to Protect Yourself and Others - CDC, Heart Failure Eating Plan, Prevent the Spread of COVID-19 if You Are Sick - [facility] Forms: ED Department Discharge Referrals: Jolanta Cifuentes NP [Primary Care Provider] - 06/02/20 11:00 am - Discharge Summary/Plan Comment DC Time >30 min.: Yes (setting up home oxygen) - General Info Date of Service: 05/29/20 Admission Dx/Problem (Free Text: Admission Diagnosis/Problem Admission Diagnosis/Problem Hypoxia Subjective Update: Doing well today, however we are unable to get him titrated off of his oxygen. He has been qualified for home oxygen. Functional Status: Reports: Tolerating Diet, Ambulating, Urinating, Incentive Spirometry - Review of Systems General: Reports: No Symptoms HEENT: Reports: Glasses Pulmonary: Reports: No Symptoms Cardiovascular: Reports: No Symptoms Gastrointestinal: Reports: No Symptoms Genitourinary: Reports: No Symptoms Musculoskeletal: Reports: No Symptoms Skin: Reports: No Symptoms Neurological: Reports: No Symptoms Psychiatric: Reports: No Symptoms - Patient Data Vitals - Most Recent: Last Vital Signs Temp 98.2 F 05/29/20 10:43 Pulse 55 L 05/29/20 08:27 Resp 18 05/29/20 04:14 BP 150/79 H 05/29/20 08:22 Pulse Ox 90 L 05/29/20 08:27 Weight - Most Recent: 109.996 kg I&O - Last 24 hours: Intake & Output 05/28/20 05/29/20 05/29/20 22:59 06:59 14:59 Intake Total 1980 100 Output Total 600 3100 Balance 1380 -3000 Lab Results - Last 24 hrs: Laboratory Results - last 24 hr 05/29/20 05/29/20 05/29/20 Range/Units 04:46 04:46 04:46 WBC 11.48 H (4.23-9.07) K/mm3 RBC 4.78 (4.63-6.08) M/mm3 Hgb 13.5 L (13.7-17.5) gm/dl Hct 42.1 (40.1-51.0) % MCV 88.1 (79.0-92.2) fl MCH 28.2 (25.7-32.2) pg MCHC 32.1 L (32.2-35.5) g/dl RDW Std Deviation 46.5 H (35.1-43.9) fL Plt Count 527 H (163-337) K/mm3 MPV 9.4 (9.4-12.3) fl Neut % (Auto) 76.8 H (34.0-67.9) % Lymph % (Auto) 11.8 L (21.8-53.1) % Haakon % (Auto) 8.4 (5.3-12.2) % Eos % (Auto) 0 L (0.8-7.0) Baso % (Auto) 0.3 (0.1-1.2) % Neut # (Auto) 8.83 H (1.78-5.38) K/mm3 Lymph # (Auto) 1.35 (1.32-3.57) K/mm3 Haakon # (Auto) 0.96 H (0.30-0.82) K/mm3 Eos # (Auto) 0.00 L (0.04-0.54) K/mm3 Baso # (Auto) 0.03 (0.01-0.08) K/mm3 Manual Slide Review Normal smear D-Dimer, Quantitative 0.75 H (0.19-0.50) mg/L Sodium 136 (136-145) mEq/L Potassium 4.2 (3.5-5.1) mEq/L Chloride 102 (98-107) mEq/L Carbon Dioxide 23 (21-32) mEq/L Anion Gap 15.2 H (5-15) BUN 21 H (7-18) mg/dL Creatinine 0.9 (0.7-1.3) mg/dL Est Cr Clr Drug Dosing 92.38 mL/min Estimated GFR (MDRD) > 60 (>60) mL/min BUN/Creatinine Ratio 23.3 H (14-18) Glucose 171 H (74-106) mg/dL Calcium 8.5 (8.5-10.1) mg/dL Magnesium 2.1 (1.8-2.4) mg/dl Total Bilirubin 0.6 (0.2-1.0) mg/dL AST 15 (15-37) U/L ALT 60 (16-63) U/L Alkaline Phosphatase 75 (46-116) U/L C-Reactive Protein 2.0 H* (<1.0) mg/dL Total Protein 6.8 (6.4-8.2) g/dl Albumin 2.7 L (3.4-5.0) g/dl Globulin 4.1 gm/dL Albumin/Globulin Ratio 0.7 L (1-2) Med Orders - Current: Current Medications Acetaminophen (Tylenol) 650 mg PO Q4H PRN PRN Reason: Pain (Mild 1-3)/fever Albuterol/Ipratropium (Duoneb 3.0-0.5 Mg/3 Ml) 3 ml NEB Q4H PRN PRN Reason: Shortness Of Breath/wheezing Last Admin: 05/27/20 21:01 Dose: 3 ml Documented by: Benazepril HCl (Lotensin) 20 mg PO DAILY [facility] Last Admin: 05/29/20 08:21 Dose: 20 mg Documented by: Dexamethasone (Dexamethasone) 6 mg PO DAILY [facility] Stop: 06/01/20 09:01 Last Admin: 05/29/20 08:21 Dose: 6 mg Documented by: Docusate Sodium (Colace) 100 mg PO BID PRN PRN Reason: Constipation Enoxaparin Sodium (Lovenox) 40 mg SUBCUT BEDTIME [facility] Last Admin: 05/28/20 20:33 Dose: 40 mg Documented by: Metoprolol Tartrate (Lopressor) 25 mg PO BID [facility] Last Admin: 05/29/20 08:22 Dose: 25 mg Documented by: Ondansetron HCl (Zofran Odt) 4 mg PO Q6H PRN PRN Reason: nausea, able to take PO Oxycodone HCl (Oxycodone) 5 mg PO Q4H PRN PRN Reason: Pain (moderate 4-6) Rosuvastatin Calcium (Crestor) 20 mg PO DAILY [facility] Last Admin: 05/29/20 08:22 Dose: 20 mg Documented by: Sodium Chloride (Saline Flush) 10 ml FLUSH ASDIRECTED PRN PRN Reason: Keep Vein Open Last Admin: 05/23/20 16:04 Dose: 10 ml Documented by: Sodium Chloride (Saline Flush) 10 ml FLUSH ASDIRECTED PRN PRN Reason: Keep Vein Open Temazepam (Restoril) 15 mg PO BEDTIME PRN PRN Reason: Sleep Discontinued Medications Acetaminophen (Tylenol) 975 mg PO NOW ONE Stop: 05/23/20 15:37 Last Admin: 05/23/20 15:50 Dose: 975 mg Documented by: Dexamethasone (Dexamethasone) 6 mg IV DAILY [facility] Last Admin: 05/24/20 09:11 Dose: 6 mg Documented by: Dexamethasone (Dexamethasone) 6 mg IV DAILY [facility] Last Admin: 05/25/20 09:07 Dose: 6 mg Documented by: Sodium Chloride (Normal Saline) 1,000 mls @ 75 mls/hr IV ASDIRECTED [facility] Last Admin: 05/24/20 13:09 Dose: 75 mls/hr Documented by: Remdesivir 100 mg/ Sodium (Chloride) 100 mls @ 100 mls/hr IV Q24H [facility] Stop: 05/27/20 18:59 Last Admin: 05/27/20 17:38 Dose: 100 mls/hr Documented by: Sodium Chloride (Normal Saline) Confirm Administered Dose 100 mls @ as directed .ROUTE .STK-MED ONE Stop: 05/23/20 22:27 Last Admin: 05/23/20 23:20 Dose: Not Given Documented by: Remdesivir 200 mg/ Sodium (Chloride) 250 mls @ 250 mls/hr IV ONETIME ONE Stop: 05/23/20 23:44 Last Admin: 05/23/20 23:50 Dose: 250 mls/hr Documented by: Ibuprofen (Motrin) 800 mg PO ONETIME ONE Stop: 05/23/20 17:55 Last Admin: 05/23/20 17:55 Dose: 800 mg Documented by: Influenza Virus Vaccine (Pharmacy To Dose - Influenza Vaccine) 1 each IM ONETIME ONE Stop: 05/24/20 05:08 Influenza Virus Vaccine (Fluzone Quad Syringe) 60 mcg IM .ONCE ONE Stop: 05/24/20 05:16 Non-Formulary Medication (Ubidecarenone) 100 mg PO DAILY BREON[facility] - Exam Quality Assessment: Reports: Supplemental Oxygen (2 L per nasal cannula), DVT Prophylaxis (Lovenox) General: Reports: Alert, Oriented, Cooperative, No Acute Distress HEENT: Reports: Pupils Equal, Pupils Reactive, Mucous Membr. Moist/[place] Neck: Reports: Supple, Trachea Midline. Denies: Lymphadenopathy Lungs: Reports: Normal Respiratory Effort, Crackles (Bilateral bases) Cardiovascular: Reports: Regular Rate, Regular Rhythm, No Murmurs GI/Abdominal Exam: Normal Bowel Sounds, Soft, Non-Tender, No Distention (Male) Exam: Deferred Rectal (Males) Exam: Deferred Back Exam: Reports: Normal Inspection, Full Range of Motion Extremities: Normal Inspection, Normal Range of Motion, Non-Tender, No Pedal Edema, Normal Capillary Refill Skin: Reports: Warm, Dry, Intact Neurological: Reports: No New Focal Deficit Psy/Mental Status: Reports: Alert, Normal Affect, Normal Mood <Cy Fuller M - Last Filed: 05/30/20 14:12> Discharge Summary - Referral to Home Health Primary Care Physician: Jolanta Cifuentes NP - Discharge Diagnosis/Problem(s) (1) Acute respiratory failure due to COVID-19 SNOMED Code(s): 411277570 ICD Code: U07.1 - COVID-19; J96.00 - ACUTE RESPIRATORY FAILURE, UNSP W HYPOXIA OR HYPERCAPNIA Status: Acute Priority: High (2) Hypertension SNOMED Code(s): 37585739 ICD Code: I10 - ESSENTIAL (PRIMARY) HYPERTENSION Status: Chronic Priority: Medium Qualifiers: Hypertension type: essential hypertension Qualified Code(s): I10 - Essential (primary) hypertension (3) Coronary artery disease SNOMED Code(s): 06155538 ICD Code: I25.10 - ATHSCL HEART DISEASE OF [place] CORONARY ARTERY W/O ANG PCTRS Status: Chronic Priority: Medium Qualifiers: Coronary Disease-Associated Artery/Lesion type: [place] artery [place] vs. transplanted heart: [place] heart Associated angina: without angina Qualified Code(s): I25.10 - Atherosclerotic heart disease of [place] coronary artery without angina pectoris (4) Hypoxia SNOMED Code(s): 241117376 ICD Code: R09.02 - HYPOXEMIA Status: Acute Priority: High (5) Pneumonia due to COVID-19 virus SNOMED Code(s): 919299972666695867 ICD Code: U07.1 - COVID-19; J12.89 - OTHER VIRAL PNEUMONIA Status: Acute Priority: High - Patient Summary/Data Hospital Course: I have seen and examined the patient independent of nurse practitioner Federico Carranza and I have discussed the case with her. I have reviewed and agree with the assessment and plan as outlined for this patient by her. Please see orders. - Patient Data Vitals - Most Recent: Last Vital Signs Temp 36.4 C 05/29/20 11:33 Pulse 58 L 05/29/20 11:33 Resp 18 05/29/20 04:14 BP 133/83 05/29/20 11:33 Pulse Ox 92 L 05/29/20 11:33 I&O - Last 24 hours: Intake & Output 05/29/20 05/30/20 05/30/20 22:59 06:59 14:59 Intake Total 360 Balance 360 Med Orders - Current: Current Medications Discontinued Medications Acetaminophen (Tylenol) 975 mg PO NOW ONE Stop: 05/23/20 15:37 Last Admin: 05/23/20 15:50 Dose: 975 mg Documented by: Acetaminophen (Tylenol) 650 mg PO Q4H PRN PRN Reason: Pain (Mild 1-3)/fever Albuterol/Ipratropium (Duoneb 3.0-0.5 Mg/3 Ml) 3 ml NEB Q4H PRN PRN Reason: Shortness Of Breath/wheezing Last Admin: 05/27/20 21:01 Dose: 3 ml Documented by: Benazepril HCl (Lotensin) 20 mg PO DAILY [facility] Last Admin: 05/29/20 08:21 Dose: 20 mg Documented by: Dexamethasone (Dexamethasone) 6 mg IV DAILY [facility] Last Admin: 05/24/20 09:11 Dose: 6 mg Documented by: Dexamethasone (Dexamethasone) 6 mg IV DAILY [facility] Last Admin: 05/25/20 09:07 Dose: 6 mg Documented by: Dexamethasone (Dexamethasone) 6 mg PO DAILY [facility] Stop: 06/01/20 09:01 Last Admin: 05/29/20 08:21 Dose: 6 mg Documented by: Docusate Sodium (Colace) 100 mg PO BID PRN PRN Reason: Constipation Enoxaparin Sodium (Lovenox) 40 mg SUBCUT BEDTIME [facility] Last Admin: 05/28/20 20:33 Dose: 40 mg Documented by: Sodium Chloride (Normal Saline) 1,000 mls @ 75 mls/hr IV ASDIRECTED [facility] Last Admin: 05/24/20 13:09 Dose: 75 mls/hr Documented by: Remdesivir 100 mg/ Sodium (Chloride) 100 mls @ 100 mls/hr IV Q24H [facility] Stop: 05/27/20 18:59 Last Admin: 05/27/20 17:38 Dose: 100 mls/hr Documented by: Sodium Chloride (Normal Saline) Confirm Administered Dose 100 mls @ as directed .ROUTE .STK-MED ONE Stop: 05/23/20 22:27 Last Admin: 05/23/20 23:20 Dose: Not Given Documented by: Remdesivir 200 mg/ Sodium (Chloride) 250 mls @ 250 mls/hr IV ONETIME ONE Stop: 05/23/20 23:44 Last Admin: 05/23/20 23:50 Dose: 250 mls/hr Documented by: Ibuprofen (Motrin) 800 mg PO ONETIME ONE Stop: 05/23/20 17:55 Last Admin: 05/23/20 17:55 Dose: 800 mg Documented by: Influenza Virus Vaccine (Pharmacy To Dose - Influenza Vaccine) 1 each IM ONETIME ONE Stop: 05/24/20 05:08 Influenza Virus Vaccine (Fluzone Quad [id number] Syringe) 60 mcg IM .ONCE ONE Stop: 05/24/20 05:16 Last Admin: 05/29/20 13:29 Dose: 60 mcg Documented by: Metoprolol Tartrate (Lopressor) 25 mg PO BID [facility] Last Admin: 05/29/20 08:22 Dose: 25 mg Documented by: Non-Formulary Medication (Ubidecarenone) 100 mg PO DAILY [facility] Ondansetron HCl (Zofran Odt) 4 mg PO Q6H PRN PRN Reason: nausea, able to take PO Oxycodone HCl (Oxycodone) 5 mg PO Q4H PRN PRN Reason: Pain (moderate 4-6) Rosuvastatin Calcium (Crestor) 20 mg PO DAILY [facility] Last Admin: 05/29/20 08:22 Dose: 20 mg Documented by: Sodium Chloride (Saline Flush) 10 ml FLUSH ASDIRECTED PRN PRN Reason: Keep Vein Open Last Admin: 05/23/20 16:04 Dose: 10 ml Documented by: Sodium Chloride (Saline Flush) 10 ml FLUSH ASDIRECTED PRN PRN Reason: Keep Vein Open Temazepam (Restoril) 15 mg PO BEDTIME PRN PRN Reason: Sleep
--- NOTE | 2020-06-02 12:13 | CR ---
PROCEDURE INFORMATION: Exam: XR Chest, 1 View Exam date and time: 05/23/2020 3:59 PM Age: 60 years old Clinical indication: Dyspnea and other: Hypoxia. Covid-19 positive. TECHNIQUE: Imaging protocol: XR of the chest Views: 1 view. COMPARISON: No relevant prior studies available. FINDINGS: Lungs: Patchy airspace density is present within the left lower lobe. The finding is concerning for possible pneumonia or aspiration. Pleural space: Unremarkable. No pleural effusion. No pneumothorax. Heart/Mediastinum: Unremarkable. No cardiomegaly. Bones/joints: Unremarkable. IMPRESSION: Possible left lower lobe pneumonia or aspiration. Thank you for allowing us to participate in the care of your patient. Dictated and Authenticated by: Miller Vargas MD 05/23/2020 5:32 PM Central Time ([place] & [place]) CONFIDENTIALITY STATEMENT This report is intended only for use by the referring physician, and only in accordance with law. If you received this in error, call [phone]. Page 1 of 1 [facility]
--- NOTE | 2020-06-03 14:38 | CR ---
PROCEDURE INFORMATION: Exam: XR Chest, 1 View Exam date and time: 05/27/2020 1:33 PM Age: 60 years old Clinical indication: Shortness of breath; Patient HX: Covid TECHNIQUE: Imaging protocol: XR of the chest Views: 1 view. COMPARISON: CR Chest 1V Frontal 05/23/2020 3:59 PM FINDINGS: Lungs: Partial clearing of left lower lobe infiltrate. Pleural space: Unremarkable. No pleural effusion. No pneumothorax. Heart/Mediastinum: Unremarkable. No cardiomegaly. Bones/joints: Unremarkable. IMPRESSION: Resolving left lower lobe pneumonia. No no other new findings. Thank you for allowing us to participate in the care of your patient. Dictated and Authenticated by: Zeyad Gay MD 05/27/2020 3:27 PM Central Time ([place] & [place]) CL[facility]
== END 2020-05-29 14:50 | disposition home or self-care (01) | DRG 177 ==
LOC: SUPCPDRO 14:51 → JD.ED 14:51 → JD.ICU 18:04 → JD.MS 18:05
PROVIDERS: ADMIT Internal Medicine; ATTEND Internal Medicine
PROC: XW033E5 Introduction of Remdesivir Anti-infective into Peripheral Vein, Percutaneous Approach, New Technology Group 5 (ICD-10-PCS; principal; 2020-05-23)
PROC: XW13325 Transfusion of Convalescent Plasma (Nonautologous) into Peripheral Vein, Percutaneous Approach, New Technology Group 5 (ICD-10-PCS; 2020-05-23)
PROC: 5A0945A Assistance with Respiratory Ventilation, 24-96 Consecutive Hours, High Flow/Velocity Cannula (ICD-10-PCS; 2020-05-23)
DX: U07.1 COVID-19 (principal); J12.89 Other viral pneumonia; J96.01 Acute respiratory failure with hypoxia; I25.10 Atherosclerotic heart disease of native coronary artery without angina pectoris; I11.0 Hypertensive heart disease with heart failure; I50.9 Heart failure, unspecified; Z87.891 Personal history of nicotine dependence; Z95.5 Presence of coronary angioplasty implant and graft; Z79.899 Other long term (current) drug therapy
CPT/HCPCS: 36415; 36430; 71045; 71045-26; 80053; 82652; 82728; 83615; 83735; 83880; 84100; 84145; 84484; 85025; 85379; 85384; 86140; 86900; 86901; 90686; 94640; 94667; 94668; 94761; 94762; 99222; 99232; 99239; 99284; 99285-25; A9270-GY; G0008; J1100; J1650; J7030; J7050; J7620-GY; J8540; P9017

== ENCOUNTER 2020-07-09 20:35 | Emergency (ER) | payer OTHER ==
--- NOTE | 2020-07-09 20:55 | EDM.PDOC ---
ED HPI GENERAL MEDICAL PROBLEM - General Chief Complaint: Upper Extremity Injury/Pain Stated Complaint: LEFT SHOULDER OUT OF PLACE Time Seen by Provider: 07/09/20 20:55 - History of Present Illness INITIAL COMMENTS - FREE TEXT/NARRATIVE: 60-year-old male presents the emergency room after injuring his left shoulder. Patient was working on his truck and went to catch the latch on a box and had a distraction type injury to his shoulder. Patient has had shoulder problems in the past and has had rotator cuff repair. At this point the patient is concerned that he pulled something out possibly dislocated his shoulder. Patient is significant discomfort from the shoulder he does not want to move it at all. Patient denies any other injury associated with his most unfortunate mishap. Patient is treated for high blood pressure but otherwise denies any medical problems. 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 Left Shoulder Pain Score (Numeric/FACES): 10 - Related Data Allergies Allergy/AdvReac Type Severity Reaction Status Date / Time No Known Allergies Allergy Verified 07/09/20 20:47 Home Meds: Home Meds Benazepril [Lotensin] 20 mg PO DAILY 05/23/20 [History] Metoprolol Tartrate [Lopressor] 25 mg PO BID 05/23/20 [History] Ubidecarenone [Co Q-10] 100 mg PO DAILY 05/23/20 [History] atorvaSTATin [Lipitor] 80 mg PO DAILY 05/23/20 [History] Past Medical History HEENT History: Reports: None Other HEENT History: wears glasses and is missing several teeth. no dentures. Cardiovascular History: Reports: CAD, Heart Failure, Hypertension Respiratory History: Reports: None Gastrointestinal History: Reports: None Genitourinary History: Reports: None Musculoskeletal History: Reports: None Neurological History: Reports: None Endocrine/Metabolic History: Reports: None Hematologic History: Reports: None Immunologic History: Reports: None Dermatologic History: Reports: None - Infectious Disease History Infectious Disease History: Reports: Novel Coronavirus - Past Surgical History HEENT Surgical History: Reports: None Cardiovascular Surgical History: Reports: Other (See Below) Other Cardiovascular Surgeries/Procedures: stent placement Respiratory Surgical History: Reports: None GI Surgical History: Reports: None Endocrine Surgical History: Reports: None Musculoskeletal Surgical History: Reports: Shoulder Surgery Other Musculoskeletal Surgeries/Procedures:: bilateral rotator cuff repairs Social & Family History - Family History Family Medical History: No Pertinent Family History - Tobacco Use Tobacco Use Status *Q: Never Tobacco User - Caffeine Use Caffeine Use: Reports: Coffee - Recreational Drug Use Recreational Drug Use: No - Living Situation & Occupation Living situation: Reports: , with Spouse Review of Systems - Review of Systems Review Of Systems: See Below Constitutional: Reports: No Symptoms Respiratory: Reports: No Symptoms Cardiovascular: Reports: No Symptoms GI/Abdominal: Reports: No Symptoms Musculoskeletal: Reports: Other (Pain is localized to his left shoulder). Denies: Neck Pain, Back Pain Skin: Reports: No Symptoms Neurological: Reports: No Symptoms Psychiatric: Reports: No Symptoms ED EXAM, GENERAL - Physical Exam Exam: See Below Exam Limited By: No Limitations General Appearance: Alert, No Apparent Distress Head: Atraumatic, Normocephalic Neck: Normal Inspection, Supple, Non-Tender, Full Range of Motion. No: Lymphadenopathy (L), Lymphadenopathy (R) Respiratory/Chest: No Respiratory Distress, Lungs Clear, Normal Breath Sounds Cardiovascular: Regular Rate, Rhythm, No Edema, No Murmur GI/Abdominal: Normal Bowel Sounds, Soft, Non-Tender Extremities: Other (Patient was left shoulder somewhat difficult because the patient will not allow passive range of motion testing. He just has quite a bit of discomfort he has no sulcus sign and there is no obvious sign of deformity.) Course - Vital Signs Last Recorded V/S: Last Vital Signs Temp 36.7 C 07/09/20 20:43 Pulse 86 07/09/20 20:43 Resp 18 07/09/20 20:43 BP 156/100 H 07/09/20 20:43 Pulse Ox 92 L 07/09/20 20:43 - Orders/Labs/Meds Orders: Active Orders 24 hr Category Date Time Status Shoulder Comp Lt [CR] Stat Exams 07/09/20 21:04 Taken Durable Medical Equipment for Discharge [DME for Oth 07/09/20 22:08 Ordered Discharge] [COMM] Stat Meds: Medications Discontinued Medications Generic Name Dose Route Start Last Admin Trade Name Caty PRN Reason Stop Dose Admin Fentanyl 50 mcg 07/09/20 21:05 07/09/20 21:15 Sublimaze IVPUSH 07/09/20 21:06 50 mcg ONETIME ONE Administration - Re-Assessments/Exams Free Text/Narrative Re-Assessment/Exam: 07/09/20 22:24 X-ray examination per my interpretation shows some degenerative changes there is some laxity within the shoulder but it otherwise shows reasonably decent alignment. Virtual radiologic reads it is no acute findings are evident. I will have the patient placed in a sling and I have cautioned the patient not to use nonsteroidals because of his high blood pressure and age and increased morbidities associated with that we will give him a few hydrocodone. And will have him follow-up with orthopedics. Departure - Departure Time of Disposition: 22:27 Disposition: Home, Self-Care 01 Clinical Impression: Injury of left shoulder - Discharge Information Referrals: Jolanta Cifuentes NP [Primary Care Provider] - Ganga Dunlap MD [Physician] - Forms: ED Department Discharge Additional Instructions: Return to the emergency room with any questions problems worsening symptoms. Follow-up with Dr. Dunlap this next week. You are given some hydrocodone from the machine out in the waiting room take 1 or 2 every 6 hours as needed for pain. Allow 24 hours after using this medication before driving or returning to work. Tylenol as needed for mild to moderate pain. However keep track your Tylenol intake as it should not exceed 4000 mg in a 24-hour period the pain pills, the [place] or hydrocodone acetaminophen have Tylenol in them as well, each pill contains 325 mg of Tylenol. Wear the sling at all times. Sepsis Event Note (ED) - Evaluation Sepsis Screening Result: No Definite Risk - Focused Exam Vital Signs: Vital Signs Temp Pulse Resp BP Pulse Ox 07/09/20 20:43 36.7 C 86 18 156/100 H 92 L - My Orders Last 24 Hours: My Active Orders 07/09/20 21:04 Shoulder Comp Lt [CR] Stat 07/09/20 22:08 Durable Medical Equipment for Discharge [DME for Discharge] [COMM] Stat - Assessment/Plan Last 24 Hours: My Active Orders 07/09/20 21:04 Shoulder Comp Lt [CR] Stat 07/09/20 22:08 Durable Medical Equipment for Discharge [DME for Discharge] [COMM] Stat
[2020-07-09] MEDS ORDERED: fentaNYL 100 MCG/2 ML SDV IVPUSH ONE (21:05)
[2020-07-09] MEDS ORDERED: Acetaminophen/HYDROcodone 325-5 MG Tab PO ONE (22:27)
--- NOTE | 2020-07-10 08:52 | CR ---
Left shoulder: Multiple radiographs of the left shoulder were obtained. Comparison: No previous study is available. Findings: Osseous: Mild joint space narrowing is seen within the acromioclavicular joint. Glenohumeral joint appears within normal limits. No acute fracture or dislocation is appreciated. Left-sided seventh cervical rib is seen. Soft tissues: No soft tissue calcifications are seen. Impression: 1. Joint space narrowing within the acromioclavicular joint. 2. Left-sided cervical rib. 3. Left shoulder study shows nothing acute. Diagnostic code #2 I agree with preliminary report from [facility], finalized on 07/09/20, 10:56 PM Central Standard Time
== END 2020-07-09 22:41 | disposition home or self-care (01) ==
LOC: JD.ED 20:35
DX: S49.92XA Unspecified injury of left shoulder and upper arm, initial encounter (principal); I25.10 Atherosclerotic heart disease of native coronary artery without angina pectoris; I11.0 Hypertensive heart disease with heart failure; I50.9 Heart failure, unspecified; X50.9XXA Other and unspecified overexertion or strenuous movements or postures, initial encounter
CPT/HCPCS: 73030; 96374; 99283; A9270; J3010; 99284